=== PATIENT | male | born 1950 | race Caucasian/White ===

== ENCOUNTER 2016-06-20 11:35 | Inpatient (IN) | payer OTHER ==
[2016-06-20 12:05] VITALS: BMI 27.3
--- NOTE | 2016-06-20 13:37 | HP ---
CIWA Score - CIWA Score Nausea/Vomitin-No Nausea/No Vomiting Muscle Tremors: 1-None Visible, but [place] Anxiety: 6 Agitation: 4-Moderately Restless Paroxysmal Sweats: 1-Minimal Palms Moist Orientation: 0-Oriented Tacttile Disturbances: 3-Moderate Itch/Numb/Burn Auditory Disturbances: 0-None Visual Disturbances: 0-None Headache: 0-None Present CIWA-Ar Total Score: 15 Admission ROS BHS - HPI Chief Complaint: DETOX TX FOR ALCOHOL DEPENDENCE Allergies/Adverse Reactions: Allergies Allergy/AdvReac Type Severity Reaction Status Date / Time No Known Allergies Allergy Verified 08/30/15 17:49 History of Present Illness: 66 Y/O MALE WITH A HX OF ALCOHOL DEPENDENCE SEEKING DETOX [place] Exam Limitations: No Limitations - Ebola screening Have you traveled outside of the country in the last 21 days: No Have you had contact with anyone from an Ebola affected area: No Have you been sick,other than usual withdrawal symptoms: No - Review of Systems Constitutional: Chills, Night Sweats, Changes in sleep EENT: reports: Blurred Vision (WEARS GLASSES), Nose Congestion Respiratory: reports: Shortness of Breath (HX COPD), Wheezing Cardiac: reports: No Symptoms Reported GI: reports: Nausea, Vomiting : reports: Incontinence, Other (PROSTATE CANCER..GOING INTO RADIATION TX AFTER DETOX HERE.) Musculoskeletal: reports: Back Pain (STENOSIS/BULGING DISCS), Joint Pain, Muscle Pain, Other (FX RIGHT FOOT..PINS ON HEEL.) Integumentary: reports: No Symptoms Reported Neuro: reports: Unsteady Gait (USES CANE.) Endocrine: reports: No Symptoms Reported Hematology: reports: No Symptoms Reported Psychiatric: reports: Orientated x3, Agitated, Anxious, Depressed Other Systems: Reviewed and Negative Patient History - Patient Medical History Hx Anemia: No Hx Asthma: No Hx Chronic Obstructive Pulmonary Disease (COPD): Yes (on albuterol inhaler) Hx Cancer: Yes (PROSTATE CANCER) Hx Cardiac Disorders: No (Pt has a pacemaker 2012) Hx Hypertension: Yes (ON MEDS) Hx Hypercholesterolemia: No Hx Pacemaker: Yes (in 2012) HX Cerebrovascular Accident: No Hx Seizures: No Hx Diabetes: No Hx Gastrointestinal Disorders: No Hx Genitourinary Disorders: Yes (INCONTINENT/PROSTATE CANCER/BPH) Hx Sexually Transmitted Disorders: No Hx Renal Disease (ESRD): Yes (KIDNEY STONES SUMMER 2015) Hx Thyroid Disease: No Hx Human Immunodeficiency Virus (HIV): No (NEGATIVE HX) Hx Hepatitis C: No Hx Depression: Yes (ON MEDS) Hx Suicide Attempt: No (DENIES) Hx Bipolar Disorder: No Hx Schizophrenia: No - Patient Surgical History Past Surgical History: Yes Hx Neurologic Surgery: No Hx Cataract Extraction: No Hx Cardiac Surgery: Yes (pacemaker in 2012) Hx Lung Surgery: No Hx Breast Surgery: No Hx Breast Biopsy: No Hx Abdominal Surgery: No Hx Appendectomy: No Hx Cholecystectomy: No Hx Genitourinary Surgery: No Hx Section: No Hx Orthopedic Surgery: Yes (rt. foot) Anesthesia Reaction: No - PPD History Previous Implant?: Yes Documented Results: Negative w/proof Implanted On Prior [facility] Admission?: Yes Date: 09/01/15 PPD to be Administered?: No - Reproductive History Patient is a Female of Child Bearing Age (11 -55 yrs old): No (MALE) - Smoking Cessation Smoking history: Current every day smoker Have you smoked in the past 12 months: Yes Aproximately how many cigarettes per day: 20 Hx Chewing Tobacco Use: No Initiated information on smoking cessation: Yes 'Breaking Loose' booklet given: 06/20/16 - Substance & Tx. History Hx Alcohol Use: Yes (VODKA) Substance Use Type: Alcohol Hx Substance Use Treatment: Yes - Substances Abused Alcohol Route: Oral Frequency: Daily Amount used: 3/4 OF A QUART Age of first use: 16 Date of Last Use: 06/20/16 Family Disease History - Family Disease History Family Disease History: Other: Brother (alcohol,), Sister (alcohol, ) Admission Physical Exam S - Vital Signs Vital Signs: Vital Signs - 24 hr 06/20/16 12:03 Temperature 96.4 F L Pulse Rate 96 H Respiratory 20 Rate Blood Pressure 144/85 - Physical General Appearance: Yes: Moderate Distress, Alcohol on Breath, Intoxicated, Irritable, Anxious HEENTM: Yes: EOMI, Normocephalic, ALBA Respiratory: Yes: Chest Non-Tender, Lungs Clear, Normal Breath Sounds, No Respiratory Distress Neck: Yes: Supple, Trachea in good position Breast: Yes: Breast Exam Deferred Cardiology: Yes: Regular Rhythm, Regular Rate, S1, S2 Abdominal: Yes: Normal Bowel Sounds, Non Tender, Soft Genitourinary: Yes: Other (N/C) Back: Yes: Within Normal Limits Musculoskeletal: Yes: full range of Motion, Gait Steady (USES CANE) Extremities: Yes: Normal Range of Motion, Non-Tender Neurological: Yes: leg man II-XII NML intact, Fully Oriented, Alert Integumentary: Yes: Dry, Warm Lymphatic: Yes: Within Normal Limits - Diagnostic (1) Alcohol dependence with uncomplicated withdrawal Current Visit: Yes Status: Acute (2) COPD (chronic obstructive pulmonary disease) Current Visit: Yes Status: Chronic Qualifiers: COPD type: unspecified COPD Qualified Code(s): J44.9 - Chronic obstructive pulmonary disease, unspecified (3) Essential hypertension Current Visit: Yes Status: Chronic (4) History of pacemaker Current Visit: Yes Status: Chronic (5) Nicotine dependence Current Visit: Yes Status: Chronic Qualifiers: Nicotine product type: cigarettes Substance use status: uncomplicated Qualified Code(s): F17.210 - Nicotine dependence, cigarettes, uncomplicated (6) BPH (benign prostatic hyperplasia) Current Visit: Yes Status: Chronic Qualifiers: Prostatic enlargement morphology: unspecified morphology Lower urinary tract symptom presence: symptoms absent Qualified Code(s): N40.0 - Enlarged prostate without lower urinary tract symptoms (7) GERD (gastroesophageal reflux disease) Current Visit: Yes Status: Chronic Qualifiers: Esophagitis presence: without esophagitis Qualified Code(s): K21.9 - Gastro-esophageal reflux disease without esophagitis (8) History of prostate cancer Current Visit: Yes Status: Suspected Comment: PT STATES CURRENTLY GOING THROUGH PROCESS FOR SX THEN RADIATION TX AFTER DETOX Cleared for Admission BHS - Detox or Rehab [facility] Level of Care: Medically Managed Detox Regimen/Protocol: Librium [facility] Breath Alcohol Content Breath Alcohol Content: 0.093 Urine Drug Screen - Results Drug Screen Negative: No Urine Drug Screen Results: TCA-Tricyclic Antidepress
[2016-06-20] MEDS ORDERED: MAG HYDROX/AL HYDROX/SIMETH 30 ML UNIT-DOSE CUP PO PRN (13:50)
[2016-06-20] MEDS ORDERED: MAGNESIUM HYDROX 2400MG/30ML ORAL SUSPENSION 30 ML CUP PO PRN (13:50)
[2016-06-20] MEDS ORDERED: P-EPHED 60MG/TRIPROLIDI 2.5MG TABLET PO PRN (13:50)
[2016-06-20] MEDS ORDERED: guaiFENesin/D-METHORPHAN HB 10 ML UNIT-DOSE CUPS PO PRN (13:50)
[2016-06-20] MEDS ORDERED: LOPERAMIDE HCL 2 MG CAPSULE PO PRN (13:50)
[2016-06-20] MEDS ORDERED: MAGNESIUM CITRATE 300 ML BOTTLE PO PRN (13:50)
[2016-06-20] MEDS ORDERED: IBUPROFEN 400 MG TABLET (FP) PO PRN (13:50)
[2016-06-20] MEDS ORDERED: hydrOXYzine PAMOATE 25 MG CAPSULE (FP) PO PRN (13:50)
[2016-06-20] MEDS ORDERED: MENTHOL/PHENOL 1 EACH UD MM PRN (13:50)
[2016-06-20] MEDS ORDERED: chlordiazePOXIDE HCL 25 MG CAPSULE PO PRN (13:50)
[2016-06-20] MEDS ORDERED: ACETAMINOPHEN 325 MG TABLET (FP) PO PRN (13:50)
[2016-06-20] MEDS ORDERED: NICOTINE POLACRILEX 4 MG GUM BUC PRN (13:50)
[2016-06-20] MEDS ORDERED: chlordiazePOXIDE HCL 25 MG CAPSULE PO ONE (14:42)
[2016-06-20] MEDS ORDERED: ALBUTEROL SO4 6.7 GM HFA INHALER IH PRN (14:50)
[2016-06-20] MEDS: ASPIRIN 81 MG CHEWABLE TABLETS PO SCH (15:50)
[2016-06-20] MEDS: NICOTINE 21 MG/24 HOURS TOPICAL PATCH TD SCH (15:51)
[2016-06-20] MEDS: HYDROCHLOROTHIAZIDE 25 MG TABLET (FP) PO SCH (15:51)
[2016-06-20] MEDS: TAMSULOSIN HCL 0.4 MG CAP.ER.24H (FP) PO SCH (15:51)
[2016-06-20] MEDS: amLODIPine BESYLATE 5 MG TABLET (FP) PO SCH ×2 (15:52→16:53)
[2016-06-20] MEDS: chlordiazePOXIDE HCL 25 MG CAPSULE PO SCH ×2 (17:42→22:23)
[2016-06-20 21:03] LABS: URINE APPEARANCE CLEAR; URINE BILIRUBIN NEGATIVE (NEGATIVE); URINE BLOOD NEGATIVE (NEGATIVE); URINE COLOR YELLOW; URINE GLUCOSE (UA) NEGATIVE (NEGATIVE); URINE KETONE NEGATIVE (NEGATIVE); URINE LEUK ESTERASE NEGATIVE (NEGATIVE); URINE NITRITE NEGATIVE (NEGATIVE); URINE PROTEIN NEGATIVE (NEGATIVE); URINE UROBILINOGEN NEGATIVE E.U./dl (0.2-1.0)
[2016-06-20] MEDS: THIAMINE HCL 100 MG TABLET (FP) PO SCH (22:24)
[2016-06-21] MEDS: chlordiazePOXIDE HCL 25 MG CAPSULE PO SCH ×4 (05:38→22:17)
--- NOTE | 2016-06-21 09:34 | EKG ---
Test Reason : Blood Pressure : / mmHG Vent. Rate : 090 BPM Atrial Rate : 090 BPM P-R Int : 164 ms QRS Dur : 144 ms QT Int : 400 ms P-R-T Axes : 042 -46 034 degrees QTc Int : 489 ms NORMAL SINUS RHYTHM LEFT AXIS DEVIATION RIGHT BUNDLE BRANCH BLOCK CANNOT RULE OUT INFERIOR INFARCT , AGE UNDETERMINED ABNORMAL ECG NO PREVIOUS ECGS AVAILABLE Confirmed by BERTIN BANDA MD ([id number]) on 06/21/2016 9:34:31 AM Referred By: Garland Ortiz Confirmed By:BERTIN BANDA MD
[2016-06-21] MEDS: amLODIPine BESYLATE 5 MG TABLET (FP) PO SCH (10:21)
[2016-06-21] MEDS: ASPIRIN 81 MG CHEWABLE TABLETS PO SCH (10:21)
[2016-06-21] MEDS: PRENATAL VITAMINS W/ FOLIC ACID TABLET (FP) PO SCH (10:22)
[2016-06-21] MEDS: HYDROCHLOROTHIAZIDE 25 MG TABLET (FP) PO SCH (10:22)
[2016-06-21] MEDS: NICOTINE 21 MG/24 HOURS TOPICAL PATCH TD SCH (10:24)
[2016-06-21] MEDS: TAMSULOSIN HCL 0.4 MG CAP.ER.24H (FP) PO SCH (10:24)
[2016-06-21 10:25] LABS: MCH 33.3 pg (25.7-33.7); MCHC 33.7 g/dl (32.0-35.9); MEAN PLT VOLUME 9.6 fl (7.5-11.1); PLATELET COUNT 253 K/MM3 (134-434); RDW 14.1 % (11.9-15.9); WHITE BLOOD COUNT 6.6 K/mm3 (4.0-10.0)
--- NOTE | 2016-06-21 11:12 | PN ---
S CIWA - CIWA Score Nausea/Vomitin Muscle Tremors: 4-Moderate,w/Arms Extend Anxiety: 4-Mod. Anxious/Guarded Agitation: 4-Moderately Restless Paroxysmal Sweats: 3 Orientation: 0-Oriented Tacttile Disturbances: 1-Very Mild Itch/Numbness Auditory Disturbances: 0-None Visual Disturbances: 0-None Headache: 1-Very Mild CIWA-Ar Total Score: 20 BHS Progress Note (SOAP) Subjective: nausea, sweats, interrupted sleep, anxiety, tremors Objective: 06/21/16 11:11 Vital Signs - 24 hr 06/20/16 06/20/16 06/20/16 12:03 15:55 17:39 Temperature 96.4 F L 98.1 F 97.5 F L Pulse Rate 96 H 95 H 97 H Respiratory 20 20 20 Rate Blood Pressure 144/85 96/68 151/77 06/20/16 06/20/16 06/21/16 21:34 23:34 03:28 Temperature 95.9 F L Pulse Rate 107 H 92 H Respiratory 20 18 16 Rate Blood Pressure 155/107 158/78 06/21/16 06/21/16 06:00 10:17 Temperature 97.2 F L 97.7 F Pulse Rate 86 103 H Respiratory 20 18 Rate Blood Pressure 111/63 147/57 Laboratory Tests 06/20/16 06/21/16 19:00 06:10 WBC 6.6 RBC 4.78 Hgb 15.9 D Hct 47.4 MCV 99.0 H MCHC 33.7 RDW 14.1 Plt Count 253 MPV 9.6 Urine Color Yellow Urine Appearance Clear Urine pH 5.0 D Ur Specific [place] 1.025 Urine Protein Negative Urine Glucose (UA) Negative Urine Ketones Negative Urine Blood Negative Urine Nitrite Negative Urine Bilirubin Negative Urine Urobilinogen Negative Ur Leukocyte Esterase Negative labs still pending Assessment: 06/21/16 11:11 withdrawal sx Plan: cont detox
[2016-06-21 11:54] LABS: ALBUMIN 3.7 g/dl (3.4-5.0); ALK PHOS 71 U/L (45-117); ANION GAP 12 (8-16); BILIRUBIN,TOTAL 0.3 mg/dL (0.2-1.0); CALCIUM 8.7 mg/dL (8.5-10.1); CO2 22 mmol/L (21-32); CREATININE 0.6 mg/dL (0.7-1.3); GLUCOSE,RANDOM 108 mg/dL (74-106); SGOT/AST 31 U/L (15-37); SGPT/ALT 43 U/L (12-78); TOT PROT 7.6 g/dl (6.4-8.2)
--- NOTE | 2016-06-21 12:58 | CONSULT ---
[facility] Psychiatric Consult - Data Date of interview: 06/21/16 Admission source: [facility] Identifying data: Readmission to [facility] for this 66 y/o male seeking detox treatment on for alcohol dependence.Patient is ,a father of one,domiciled,unemployed and supported on SSI benefits. Substance Abuse History: - Smoking Cessation. Smoking history: Current every day smoker. Have you smoked in the past 12 months: Yes. Aproximately how many cigarettes per day: 20. Hx Chewing Tobacco Use: No. Initiated information on smoking cessation: Yes. 'Breaking Loose' booklet given: 06/20/16. - Substance & Tx. History. Hx Alcohol Use: Yes (VODKA). Substance Use Type: Alcohol. Hx Substance Use Treatment: Yes. - Substances Abused. Alcohol. Route: Oral. Frequency: Daily. Amount used: 3/4 OF A QUART. Age of first use: 16. Date of Last Use: 06/20/16. Discussed with the patient in this interview.Mr Gomez confirmed this pattern of substance use. Medical History: Significant for a history of hypertension,GERD,COPD,pacemaker implantation (2013),herniated discs,low back pain,Ca of prostate (on radiation therapy) and coronary artery disease.Noted additional report of kidney stones and a history of orthosurgery (fracture of right foot). Psychiatric History: One reported psychiatric hospitalization at [facility] (2011).Diagnosed with MDD and Panic Disorder.Mr Gomez is followed at the [facility] clinic in [facility].Maintenance medications consist of effexor Xr 150 mg /day + gabapentin 300 mg po tid.No history of suicide attempts. Physical/Sexual Abuse/Trauma History: Patient denies. Additional Comment: Urine Drug Screen Results: TCA-Tricyclic Antidepressant.Noted. Mental Status Exam - Mental Status Exam Alert and Oriented to: Time, Place, Person Cognitive Function: Good Patient Appearance: Well Groomed Mood: Hopeful, Euthymic Affect: Appropriate, Normal Range Patient Behavior: Fatigued, Talkative (friendly on approach), Appropriate, Cooperative Speech Pattern: Clear, Appropriate Voice Loudness: Normal Thought Process: Intact, Goal Oriented Thought Disorder: Not Present Hallucinations: Denies Suicidal Ideation: Denies Homicidal Ideation: Denies Insight/Judgement: Fair Sleep: Poorly Appetite: Good Muscle strength/Tone: Normal Gait/Station: Other (walks with a cane) Psychiatric Findings - Problem List ([place] 1, 2,3) (1) Alcohol dependence with uncomplicated withdrawal Current Visit: Yes Status: Acute (2) Nicotine dependence Current Visit: Yes Status: Acute Qualifiers: Nicotine product type: cigarettes Substance use status: uncomplicated Qualified Code(s): F17.210 - Nicotine dependence, cigarettes, uncomplicated (3) MDD (major depressive disorder) Current Visit: Yes Status: Chronic Qualifiers: Major depression recurrence: recurrent Active/Remission status: in remission of unspecified degree Qualified Code(s): F33.40 - Major depressive disorder, recurrent, in remission, unspecified (4) Anxiety disorder Current Visit: Yes Status: Chronic (5) BPH (benign prostatic hyperplasia) Current Visit: Yes Status: Chronic Qualifiers: Prostatic enlargement morphology: unspecified morphology Lower urinary tract symptom presence: symptoms absent Qualified Code(s): N40.0 - Enlarged prostate without lower urinary tract symptoms (6) COPD (chronic obstructive pulmonary disease) Current Visit: Yes Status: Chronic Qualifiers: COPD type: unspecified COPD Qualified Code(s): J44.9 - Chronic obstructive pulmonary disease, unspecified (7) Essential hypertension Current Visit: Yes Status: Chronic (8) GERD (gastroesophageal reflux disease) Current Visit: Yes Status: Chronic Qualifiers: Esophagitis presence: without esophagitis Qualified Code(s): K21.9 - Gastro-esophageal reflux disease without esophagitis (9) History of pacemaker Current Visit: Yes Status: Chronic (10) History of prostate cancer Current Visit: Yes Status: Suspected Comment: PT STATES CURRENTLY GOING THROUGH PROCESS FOR SX THEN RADIATION [place] AFTER DETOX - Initial Treatment Plan Initial Treatment Plan: Psychoeducation.Detoxification.Medications :effexor Xr 150 mg po daily +gabapentin 300 mg po tid (verified via pharmacy claims on @ [facility] in [facility]).Side effects/benefits discussed with the patient.He agrees with careplan.Observation.Fall precautions.
[2016-06-21] MEDS: GABAPENTIN 300 MG CAPSULE (FP) PO SCH ×2 (14:12→22:17)
[2016-06-21] MEDS: THIAMINE HCL 100 MG TABLET (FP) PO SCH (22:17)
[2016-06-22] MEDS: GABAPENTIN 300 MG CAPSULE (FP) PO SCH ×3 (05:37→22:10)
[2016-06-22] MEDS: chlordiazePOXIDE HCL 25 MG CAPSULE PO SCH ×2 (05:37→10:39)
[2016-06-22] MEDS: VENLAFAXINE HCL 150 MG E.R. CAPSULE PO SCH (10:38)
[2016-06-22] MEDS: amLODIPine BESYLATE 5 MG TABLET (FP) PO SCH (10:38)
[2016-06-22] MEDS: PRENATAL VITAMINS W/ FOLIC ACID TABLET (FP) PO SCH (10:38)
[2016-06-22] MEDS: TAMSULOSIN HCL 0.4 MG CAP.ER.24H (FP) PO SCH (10:38)
[2016-06-22] MEDS: ASPIRIN 81 MG CHEWABLE TABLETS PO SCH (10:38)
[2016-06-22] MEDS: HYDROCHLOROTHIAZIDE 25 MG TABLET (FP) PO SCH (10:38)
[2016-06-22] MEDS: NICOTINE 21 MG/24 HOURS TOPICAL PATCH TD SCH (10:39)
--- NOTE | 2016-06-22 11:49 | PN ---
[facility] CIWA - CIWA Score Nausea/Vomitin-No Nausea/No Vomiting Muscle Tremors: 4-Moderate,w/Arms Extend Anxiety: 4-Mod. Anxious/Guarded Agitation: 3 Paroxysmal Sweats: 3 Orientation: 0-Oriented Tacttile Disturbances: 1-Very Mild Itch/Numbness Auditory Disturbances: 0-None Visual Disturbances: 0-None Headache: 0-None Present CIWA-Ar Total Score: 15 BHS Progress Note (SOAP) Subjective: ANXIETY,TREMORS,SWEATING,INTERRUPTED SLEEP,RESTLESS Objective: 06/22/16 11:47 Laboratory Last Values WBC 6.6 K/mm3 (4.0-10.0) 06/21/16 06:10 RBC 4.78 M/mm3 (4.00-5.60) 06/21/16 06:10 Hgb 15.9 GM/dL (11.7-16.9) D 06/21/16 06:10 Hct 47.4 % (35.4-49) 06/21/16 06:10 MCV 99.0 fl (80-96) H 06/21/16 06:10 MCHC 33.7 g/dl (32.0-35.9) 06/21/16 06:10 RDW 14.1 % (11.9-15.9) 06/21/16 06:10 Plt Count 253 K/MM3 (134-434) 06/21/16 06:10 MPV 9.6 fl (7.5-11.1) 06/21/16 06:10 Sodium 145 mmol/L (136-145) 06/21/16 06:10 Potassium 3.9 mmol/L (3.5-5.1) 06/21/16 06:10 Chloride 111 mmol/L (98-107) H 06/21/16 06:10 Carbon Dioxide 22 mmol/L (21-32) D 06/21/16 06:10 Anion Gap 12 (8-16) 06/21/16 06:10 BUN 12 mg/dL (7-18) 06/21/16 06:10 Creatinine 0.6 mg/dL (0.7-1.3) L 06/21/16 06:10 Creat Clearance w eGFR > 60 (>60) 06/21/16 06:10 Random Glucose 108 mg/dL (74-106) H 06/21/16 06:10 Calcium 8.7 mg/dL (8.5-10.1) 06/21/16 06:10 Total Bilirubin 0.3 mg/dL (0.2-1.0) D 06/21/16 06:10 AST 31 U/L (15-37) D 06/21/16 06:10 ALT 43 U/L (12-78) D 06/21/16 06:10 Alkaline Phosphatase 71 U/L (45-117) 06/21/16 06:10 Total Protein 7.6 g/dl (6.4-8.2) 06/21/16 06:10 Albumin 3.7 g/dl (3.4-5.0) 06/21/16 06:10 Urine Color Yellow 06/20/16 19:00 Urine Appearance Clear 06/20/16 19:00 Urine pH 5.0 (5.0-8.0) D 06/20/16 19:00 Ur Specific [place] 1.025 (1.001-1.035) 06/20/16 19:00 Urine Protein Negative (NEGATIVE) 06/20/16 19:00 Urine Glucose (UA) Negative (NEGATIVE) 06/20/16 19:00 Urine Ketones Negative (NEGATIVE) 06/20/16 19:00 Urine Blood Negative (NEGATIVE) 06/20/16 19:00 Urine Nitrite Negative (NEGATIVE) 06/20/16 19:00 Urine Bilirubin Negative (NEGATIVE) 06/20/16 19:00 Urine Urobilinogen Negative E.U./dl (0.2-1.0) 06/20/16 19:00 Ur Leukocyte Esterase Negative (NEGATIVE) 06/20/16 19:00 RPR Titer Nonreactive (NONREACTIVE) 06/21/16 06:10 LABS NOTED Vital Signs - 8 hr 06/22/16 06/22/16 06:00 10:00 Temperature 96.3 F L 98.2 F Pulse Rate 76 117 H Respiratory 18 18 Rate Blood Pressure 125/74 132/72 Assessment: 06/22/16 11:48 WITHDRAWAL SX. Plan: CONTINUE DETOX
[2016-06-22] MEDS: chlordiazePOXIDE 5 MG CAPSULE PO SCH ×2 (17:06→22:10)
[2016-06-22] MEDS: THIAMINE HCL 100 MG TABLET (FP) PO SCH (22:10)
[2016-06-22] MEDS: diphenhydrAMINE HCL 50 MG CAPSULE PO PRN (22:11)
[2016-06-23] MEDS: GABAPENTIN 300 MG CAPSULE (FP) PO SCH ×3 (05:03→22:08)
[2016-06-23] MEDS: chlordiazePOXIDE 5 MG CAPSULE PO SCH ×2 (05:03→10:19)
--- NOTE | 2016-06-23 09:59 | PN ---
BHS Progress Note (SOAP) Subjective: irritable sweats Objective: 06/23/16 09:58 Vital Signs Temperature 97.6 F 06/23/16 05:14 Pulse Rate 86 06/23/16 05:14 Respiratory Rate 18 06/23/16 05:14 Blood Pressure 138/75 06/23/16 05:14 O2 Sat by Pulse Oximetry (%) awake/alert ambulating no acute distress Assessment: 06/23/16 09:58 withdrawal sx Plan: continue detox increase fluids d/c in am
[2016-06-23] MEDS: ASPIRIN 81 MG CHEWABLE TABLETS PO SCH (10:18)
[2016-06-23] MEDS: TAMSULOSIN HCL 0.4 MG CAP.ER.24H (FP) PO SCH (10:18)
[2016-06-23] MEDS: HYDROCHLOROTHIAZIDE 25 MG TABLET (FP) PO SCH (10:18)
[2016-06-23] MEDS: PRENATAL VITAMINS W/ FOLIC ACID TABLET (FP) PO SCH (10:18)
[2016-06-23] MEDS: VENLAFAXINE HCL 150 MG E.R. CAPSULE PO SCH (10:18)
[2016-06-23] MEDS: amLODIPine BESYLATE 5 MG TABLET (FP) PO SCH (10:18)
[2016-06-23] MEDS: NICOTINE 21 MG/24 HOURS TOPICAL PATCH TD SCH (10:19)
[2016-06-23] MEDS: chlordiazePOXIDE HCL 10 MG CAPSULE PO SCH ×2 (17:55→22:08)
[2016-06-23] MEDS: THIAMINE HCL 100 MG TABLET (FP) PO SCH (22:08)
[2016-06-23] MEDS: diphenhydrAMINE HCL 50 MG CAPSULE PO PRN (22:10)
[2016-06-24] MEDS: chlordiazePOXIDE HCL 10 MG CAPSULE PO SCH (05:22)
[2016-06-24] MEDS: GABAPENTIN 300 MG CAPSULE (FP) PO SCH (05:23)
--- NOTE | 2016-06-24 08:36 | DS ---
[facility] Detox Discharge Summary Admission Date: 06/20/16 Discharge Date: 06/24/16 - History Present History: Alcohol Dependence - Physical Exam Results Vital Signs: Vital Signs Temperature 96.8 F L 06/24/16 06:16 Pulse Rate 77 06/24/16 06:16 Respiratory Rate 18 06/24/16 06:16 Blood Pressure 118/61 06/24/16 06:16 O2 Sat by Pulse Oximetry (%) - Treatment Hospital Course: Detox Protocol Followed, Detoxed Safely, Responded well, Discharged Condition Good, Rehab Referral Accepted - Medication Discharge Medications: Ambulatory Orders Aspirin [ASA -] 81 mg PO DAILY 08/30/15 Venlafaxine HCl [Effexor -] 150 mg PO DAILY 08/30/15 Hydrochlorothiazide [Hctz -] 25 mg PO DAILY #30 tablet 09/03/15 Tamsulosin HCl [Flomax -] 0.4 mg PO DAILY #30 cap.er.24h 09/03/15 Albuterol Sulfate Inhaler - [Ventolin Hfa Inhaler -] 2 inh PO Q4H PRN 06/20/16 Amlodipine Besylate [Norvasc -] 5 mg PO DAILY 06/20/16 Cyclobenzaprine HCl [Flexeril -] 10 mg PO TID 06/20/16 Gabapentin [Neurontin -] 300 mg PO Q8H 06/20/16 Venlafaxine HCl ER [Effexor Xr -] 150 mg PO DAILY #30 cap.er.24h 06/21/16 - Diagnosis (1) Alcohol dependence with uncomplicated withdrawal Current Visit: Yes Status: Chronic (2) Nicotine dependence Current Visit: Yes Status: Chronic Qualifiers: Nicotine product type: cigarettes Substance use status: uncomplicated Qualified Code(s): F17.210 - Nicotine dependence, cigarettes, uncomplicated (3) Anxiety disorder Current Visit: Yes Status: Chronic (4) BPH (benign prostatic hyperplasia) Current Visit: Yes Status: Chronic Qualifiers: Prostatic enlargement morphology: unspecified morphology Lower urinary tract symptom presence: symptoms absent Qualified Code(s): N40.0 - Enlarged prostate without lower urinary tract symptoms (5) COPD (chronic obstructive pulmonary disease) Current Visit: Yes Status: Chronic Qualifiers: COPD type: unspecified COPD Qualified Code(s): J44.9 - Chronic obstructive pulmonary disease, unspecified (6) Essential hypertension Current Visit: Yes Status: Chronic (7) GERD (gastroesophageal reflux disease) Current Visit: Yes Status: Chronic Qualifiers: Esophagitis presence: without esophagitis Qualified Code(s): K21.9 - Gastro-esophageal reflux disease without esophagitis (8) History of pacemaker Current Visit: Yes Status: Chronic (9) MDD (major depressive disorder) Current Visit: Yes Status: Chronic Qualifiers: Major depression recurrence: recurrent Active/Remission status: in remission of unspecified degree Qualified Code(s): F33.40 - Major depressive disorder, recurrent, in remission, unspecified (10) History of prostate cancer Current Visit: Yes Status: Suspected (11) Depression Current Visit: No Status: Acute (12) Syncope Current Visit: No Status: Acute - AMA Did Patient Leave Against Medical Advice: No
[2016-06-24 09:31] VITALS: BP 112/72; PULSE 92; TEMP 97.7
[2016-06-24] MEDS: VENLAFAXINE HCL 150 MG E.R. CAPSULE PO SCH (09:47)
[2016-06-24] MEDS: TAMSULOSIN HCL 0.4 MG CAP.ER.24H (FP) PO SCH (09:47)
[2016-06-24] MEDS: amLODIPine BESYLATE 5 MG TABLET (FP) PO SCH (09:47)
[2016-06-24] MEDS: ASPIRIN 81 MG CHEWABLE TABLETS PO SCH (09:47)
[2016-06-24] MEDS: HYDROCHLOROTHIAZIDE 25 MG TABLET (FP) PO SCH (09:47)
[2016-06-24] MEDS: PRENATAL VITAMINS W/ FOLIC ACID TABLET (FP) PO SCH (09:47)
[2016-06-24] MEDS: NICOTINE 21 MG/24 HOURS TOPICAL PATCH TD SCH (09:48)
== END 2016-06-24 10:06 | disposition home or self-care (01) | DRG 775 ==
LOC: YASAS 11:35 → Y6N 14:33
PROVIDERS: ADMIT Internal Medicine; ATTEND Internal Medicine
PROC: HZ2ZZZZ Detoxification Services for Substance Abuse Treatment (ICD-10-PCS; principal; 2016-06-24)
DX: F10.230 Alcohol dependence with withdrawal, uncomplicated (principal); F17.210 Nicotine dependence, cigarettes, uncomplicated; F33.40 Major depressive disorder, recurrent, in remission, unspecified; F41.9 Anxiety disorder, unspecified; I10 Essential (primary) hypertension; J44.9 Chronic obstructive pulmonary disease, unspecified; K21.9 Gastro-esophageal reflux disease without esophagitis; N40.0 Benign prostatic hyperplasia without lower urinary tract symptoms; Z85.46 Personal history of malignant neoplasm of prostate; Z95.0 Presence of cardiac pacemaker; R55 Syncope and collapse
CPT/HCPCS: 36415; 80053; 81003; 85027; 86593; 93005; 93010

== ENCOUNTER 2016-10-03 12:48 | Inpatient (IN) | payer OTHER ==
[2016-10-03 17:46] VITALS: BMI 27.1
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
[2016-10-03] MEDS ORDERED: MAGNESIUM HYDROX 2400MG/30ML ORAL SUSPENSION 30 ML CUP PO PRN (18:25)
[2016-10-03] MEDS ORDERED: IBUPROFEN 400 MG TABLET (FP) PO PRN (18:25)
[2016-10-03] MEDS ORDERED: P-EPHED 60MG/TRIPROLIDI 2.5MG TABLET PO PRN (18:25)
[2016-10-03] MEDS ORDERED: MAGNESIUM CITRATE 300 ML BOTTLE PO PRN (18:25)
[2016-10-03] MEDS ORDERED: LOPERAMIDE HCL 2 MG CAPSULE PO PRN (18:25)
[2016-10-03] MEDS ORDERED: NICOTINE POLACRILEX 4 MG GUM BUC PRN (18:25)
[2016-10-03] MEDS ORDERED: guaiFENesin/D-METHORPHAN HB 10 ML UNIT-DOSE CUPS PO PRN (18:25)
[2016-10-03] MEDS ORDERED: chlordiazePOXIDE HCL 25 MG CAPSULE PO PRN (18:25)
[2016-10-03] MEDS ORDERED: MENTHOL/PHENOL 1 EACH UD MM PRN (18:25)
[2016-10-03] MEDS ORDERED: hydrOXYzine PAMOATE 50 MG CAPSULE (FP) PO PRN (18:25)
[2016-10-03] MEDS ORDERED: ACETAMINOPHEN 325 MG TABLET (FP) PO PRN (18:25)
[2016-10-03] MEDS ORDERED: MAG HYDROX/AL HYDROX/SIMETH 30 ML UNIT-DOSE CUP PO PRN (18:25)
[2016-10-03] MEDS ORDERED: ALBUTEROL SO4 6.7 GM HFA INHALER IH PRN (18:27)
[2016-10-03] MEDS ORDERED: CYCLOBENZAPRINE HCL 10 MG TABLET (FP) PO PRN (18:28)
[2016-10-03] MEDS ORDERED: ALBUTEROL SO4 2.5/IPRATROPIUM 0.5 INH SOL 3 ML VIAL.NEB. NEB PRN (18:28)
[2016-10-03] MEDS ORDERED: chlordiazePOXIDE HCL 25 MG CAPSULE PO ONE (18:45)
[2016-10-03] MEDS: GABAPENTIN 300 MG CAPSULE (FP) PO SCH ×2 (19:33→22:55)
[2016-10-03] MEDS ORDERED: diphenhydrAMINE HCL 50 MG CAPSULE PO PRN (22:00)
[2016-10-03] MEDS: TAMSULOSIN HCL 0.4 MG CAP.ER.24H (FP) PO SCH (22:54)
[2016-10-03] MEDS: THIAMINE HCL 100 MG TABLET (FP) PO SCH (22:54)
[2016-10-03] MEDS: chlordiazePOXIDE HCL 25 MG CAPSULE PO SCH (22:55)
[2016-10-03 23:11] LABS: URINE APPEARANCE CLEAR; URINE BILIRUBIN NEGATIVE (NEGATIVE); URINE BLOOD NEGATIVE (NEGATIVE); URINE COLOR YELLOW; URINE GLUCOSE (UA) NEGATIVE (NEGATIVE); URINE KETONE 1+ (NEGATIVE); URINE LEUK ESTERASE NEGATIVE (NEGATIVE); URINE NITRITE NEGATIVE (NEGATIVE); URINE PROTEIN 1+ (NEGATIVE); URINE UROBILINOGEN NEGATIVE E.U./dl (0.2-1.0)
[2016-10-03 23:18] LABS: URINE MUCUS MANY; URINE RBC 4 /hpf (0-3); URINE WBC 1 /hpf (3-5)
[2016-10-04] MEDS: chlordiazePOXIDE HCL 25 MG CAPSULE PO SCH ×4 (05:47→22:49)
[2016-10-04] MEDS: GABAPENTIN 300 MG CAPSULE (FP) PO SCH ×3 (05:47→22:49)
[2016-10-04 10:26] LABS: MCHC 33.3 g/dl (32.0-35.9); MEAN CELL VOLUME 102.3 fl (80-96); MEAN PLT VOLUME 10.1 fl (7.5-11.1); PLATELET COUNT 114 K/MM3 (134-434); RDW 15.3 % (11.9-15.9)
[2016-10-04 10:52] LABS: ALBUMIN 4.1 g/dl (3.4-5.0); ALK PHOS 59 U/L (45-117); ANION GAP 12 (8-16); BILIRUBIN,TOTAL 0.9 mg/dL (0.2-1.0); CO2 26 mmol/L (21-32); COCKROFT - GAULT 159.59; CREATININE 0.6 mg/dL (0.7-1.3); GLUCOSE,RANDOM 86 mg/dL (74-106); SGOT/AST 70 U/L (15-37); SGPT/ALT 66 U/L (12-78); TOT PROT 7.8 g/dl (6.4-8.2)
[2016-10-04] MEDS: NICOTINE 21 MG/24 HOURS TOPICAL PATCH TD SCH (11:00)
[2016-10-04] MEDS: HYDROCHLOROTHIAZIDE 25 MG TABLET (FP) PO SCH (11:00)
[2016-10-04] MEDS: PRENATAL VITAMINS W/ FOLIC ACID TABLET (FP) PO SCH (11:00)
[2016-10-04] MEDS: LOSARTAN POTASSIUM 50 MG TABLET (FP) PO SCH (11:00)
[2016-10-04] MEDS: ASPIRIN 81 MG CHEWABLE TABLETS PO SCH (11:00)
--- NOTE | 2016-10-04 15:42 | CONSULT ---
[facility] Psychiatric Consult - Data Date of interview: 10/04/16 Admission source: [facility] Identifying data: Another admission to [facility] for this 66 y/o male seeking detox treatment on for alcohol dependence.Patient is ,a father of one,domiciled,unemployed and supported on SSI benefits. Substance Abuse History: - Smoking Cessation. Smoking history: Current every day smoker. Have you smoked in the past 12 months: Yes. Aproximately how many cigarettes per day: 20. Cigars Per Day: 0. Hx Chewing Tobacco Use: No. Initiated information on smoking cessation: Yes. 'Breaking Loose' booklet given : 10/03/16. - Substance & Tx. History. Hx Alcohol Use: Yes. Hx Substance Use : No. Substance Use Type: Alcohol. Hx Substance Use Treatment: Yes. - Substances Abused. Alcohol. Route: Oral. Frequency: Daily. Amount used: 1 qt vodka. Age of first use: 14. Date of Last Use: 10/03/16. Confirmed by patient. Medical History: Hypertension,GERD,COPD,pacemaker implantation (2013),herniated discs,low back pain,radiculopathy,spinal stenosis and current treatment for Ca of prostate. Psychiatric History: Patient is a clear,articulate and consistent historian.No major changes in longitudinal history since previous encounter about two months ago : history of one psychiatric hospitalization ([facility] in 2011).Diagnosed with MDD and Panic Disorder.Mr Gomez is still followed at the [facility] clinic in [facility].Maintenance medications consist of effexor Xr 75 mg /day (reduced) + gabapentin 300 mg po tid.No history of suicide attempts. Physical/Sexual Abuse/Trauma History: Patient denies. Additional Comment: Drug Screen is negative. Mental Status Exam - Mental Status Exam Alert and Oriented to: Time, Place, Person Cognitive Function: Good Patient Appearance: Well Groomed Mood: Hopeful, Euthymic Affect: Appropriate, Normal Range Patient Behavior: Fatigued, Appropriate, Cooperative (friendly) Speech Pattern: Clear, Appropriate Voice Loudness: Normal Thought Process: Goal Oriented Thought Disorder: Not Present Hallucinations: Denies Suicidal Ideation: Denies Homicidal Ideation: Denies Insight/Judgement: Fair Sleep: Fair Appetite: Good Gait/Station: Other (ambulates with a cane) Psychiatric Findings - Problem List ([place] 1, 2,3) (1) Alcohol dependence with uncomplicated withdrawal Current Visit: Yes Status: Acute (2) Nicotine dependence Current Visit: Yes Status: Acute Qualifiers: Nicotine product type: cigarettes Substance use status: in withdrawal Qualified Code(s): F17.213 - Nicotine dependence, cigarettes, with withdrawal (3) MDD (major depressive disorder) Current Visit: Yes Status: Chronic Qualifiers: Major depression recurrence: recurrent Active/Remission status: in remission of unspecified degree Qualified Code(s): F33.40 - Major depressive disorder, recurrent, in remission, unspecified (4) Anxiety disorder Current Visit: Yes Status: Chronic (5) COPD (chronic obstructive pulmonary disease) Current Visit: Yes Status: Chronic Qualifiers: COPD type: unspecified COPD Qualified Code(s): J44.9 - Chronic obstructive pulmonary disease, unspecified (6) Essential hypertension Current Visit: Yes Status: Chronic (7) Hard of hearing Current Visit: Yes Status: Chronic Qualifiers: Hearing loss type: conductive Laterality: right Contralateral hearing status: unspecified Qualified Code(s): H90.11 - Conductive hearing loss, unilateral, right ear, with unrestricted hearing on the contralateral side (8) BPH (benign prostatic hyperplasia) Current Visit: Yes Status: Resolved Qualifiers: Prostatic enlargement morphology: unspecified morphology Lower urinary tract symptom presence: symptoms absent Qualified Code(s): N40.0 - Benign prostatic hyperplasia without lower urinary tract symptoms (9) History of prostate cancer Current Visit: Yes Status: Suspected Comment: PT STATES CURRENTLY GOING THROUGH PROCESS FOR SX THEN RADIATION TX AFTER DETOX (10) GERD (gastroesophageal reflux disease) Current Visit: Yes Status: Chronic Qualifiers: Esophagitis presence: without esophagitis Qualified Code(s): K21.9 - Gastro-esophageal reflux disease without esophagitis (11) History of pacemaker Current Visit: Yes Status: Chronic - Initial Treatment Plan Initial Treatment Plan: Psycoeducation.Detoxification.Medications are ordered ( see Psychiatric History for details).Side effecst/benefits of effexor and gabapentin are discussed with patient.He agrees with careplan.Patient declines to have scripts at discharge (supply available at home).Observation.
--- NOTE | 2016-10-04 16:40 | PN ---
[facility] CIWA - CIWA Score Nausea/Vomitin-Mild Nausea/No Vomiting Muscle Tremors: 4-Moderate,w/Arms Extend Anxiety: 3 Agitation: 2 Paroxysmal Sweats: 3 Orientation: 0-Oriented Tacttile Disturbances: 3-Moderate Itch/Numb/Burn Auditory Disturbances: 2-Mild Harshness/Frighten Visual Disturbances: 0-None Headache: 0-None Present CIWA-Ar Total Score: 18 BHS Progress Note (SOAP) Subjective: Constipation, Tremors, Sweating, Body Aches. Objective: PT. A & O X 3, OBSERVED AMBULATING ON UNIT WITH ASSISTANCE OF A CANE. PT. DENIES CHEST PAIN. 10/04/16 16:38 Vital Signs Temperature 97.6 F 10/04/16 13:26 Pulse Rate 70 10/04/16 13:26 Respiratory Rate 18 10/04/16 13:26 Blood Pressure 97/68 10/04/16 13:26 O2 Sat by Pulse Oximetry (%) Laboratory Last Values WBC 5.0 K/mm3 (4.0-10.0) 10/04/16 06:05 RBC 4.33 M/mm3 (4.00-5.60) 10/04/16 06:05 Hgb 14.8 GM/dL (11.7-16.9) 10/04/16 06:05 Hct 44.3 % (35.4-49) 10/04/16 06:05 MCV 102.3 fl (80-96) H 10/04/16 06:05 MCHC 33.3 g/dl (32.0-35.9) 10/04/16 06:05 RDW 15.3 % (11.9-15.9) 10/04/16 06:05 Plt Count 114 K/MM3 (134-434) L D 10/04/16 06:05 MPV 10.1 fl (7.5-11.1) 10/04/16 06:05 Sodium 142 mmol/L (136-145) 10/04/16 06:05 Potassium 3.8 mmol/L (3.5-5.1) 10/04/16 06:05 Chloride 104 mmol/L (98-107) 10/04/16 06:05 Carbon Dioxide 26 mmol/L (21-32) 10/04/16 06:05 Anion Gap 12 (8-16) 10/04/16 06:05 BUN 7 mg/dL (7-18) D 10/04/16 06:05 Creatinine 0.6 mg/dL (0.7-1.3) L 10/04/16 06:05 Creat Clearance w eGFR > 60 (>60) 10/04/16 06:05 Random Glucose 86 mg/dL (74-106) D 10/04/16 06:05 Calcium 9.0 mg/dL (8.5-10.1) 10/04/16 06:05 Total Bilirubin 0.9 mg/dL (0.2-1.0) D 10/04/16 06:05 AST 70 U/L (15-37) H D 10/04/16 06:05 ALT 66 U/L (12-78) D 10/04/16 06:05 Alkaline Phosphatase 59 U/L (45-117) 10/04/16 06:05 Total Protein 7.8 g/dl (6.4-8.2) 10/04/16 06:05 Albumin 4.1 g/dl (3.4-5.0) 10/04/16 06:05 Urine Color Yellow 10/03/16 20:33 Urine Appearance Clear 10/03/16 20:33 Urine pH 6.0 (5.0-8.0) 10/03/16 20:33 Urine Protein 1+ (NEGATIVE) H 10/03/16 20:33 Urine Glucose (UA) Negative (NEGATIVE) 10/03/16 20:33 Urine Ketones 1+ (NEGATIVE) H 10/03/16 20:33 Urine Blood Negative (NEGATIVE) 10/03/16 20:33 Urine Nitrite Negative (NEGATIVE) 10/03/16 20:33 Urine Bilirubin Negative (NEGATIVE) 10/03/16 20:33 Urine Urobilinogen Negative E.U./dl (0.2-1.0) 10/03/16 20:33 Ur Leukocyte Esterase Negative (NEGATIVE) 10/03/16 20:33 Urine RBC 4 /hpf (0-3) 10/03/16 20:33 Urine WBC 1 /hpf (3-5) 10/03/16 20:33 Ur Epithelial Cells Rare /hpf (FEW) 10/03/16 20:33 Urine Mucus Many 10/03/16 20:33 RPR Titer Nonreactive (NONREACTIVE) 10/04/16 06:05 LABS NOTED. Assessment: 10/04/16 16:39 WITHDRAWAL SYMPTOMS. Plan: CONTINUE DETOX. ADVISED PATIENT TO FOLLOW-UP WITH SPRAY GUN STRIPER AFTER DISCHARGE FROM DETOX FOR GENERAL MEDICAL ASSESSMENT AND FOR ABNORMAL ADMISSION LAB VALUES.
[2016-10-04] MEDS: THIAMINE HCL 100 MG TABLET (FP) PO SCH (22:49)
[2016-10-04] MEDS: TAMSULOSIN HCL 0.4 MG CAP.ER.24H (FP) PO SCH (22:49)
[2016-10-05] MEDS: GABAPENTIN 300 MG CAPSULE (FP) PO SCH ×3 (05:48→22:47)
[2016-10-05] MEDS: chlordiazePOXIDE HCL 25 MG CAPSULE PO SCH ×3 (05:48→17:27)
[2016-10-05] MEDS: PRENATAL VITAMINS W/ FOLIC ACID TABLET (FP) PO SCH (10:49)
[2016-10-05] MEDS: ASPIRIN 81 MG CHEWABLE TABLETS PO SCH (10:49)
[2016-10-05] MEDS: HYDROCHLOROTHIAZIDE 25 MG TABLET (FP) PO SCH (10:49)
[2016-10-05] MEDS: LOSARTAN POTASSIUM 50 MG TABLET (FP) PO SCH (10:49)
[2016-10-05] MEDS: VENLAFAXINE HCL 75 MG TABLET PO SCH (10:50)
[2016-10-05] MEDS: NICOTINE 21 MG/24 HOURS TOPICAL PATCH TD SCH (10:50)
--- NOTE | 2016-10-05 18:14 | PN ---
S CIWA - CIWA Score Nausea/Vomitin Muscle Tremors: 4-Moderate,w/Arms Extend Anxiety: 2 Agitation: 1-Slight > Activity Paroxysmal Sweats: 3 Orientation: 0-Oriented Tacttile Disturbances: 3-Moderate Itch/Numb/Burn Auditory Disturbances: 2-Mild Harshness/Frighten Visual Disturbances: 0-None Headache: 0-None Present CIWA-Ar Total Score: 17 BHS Progress Note (SOAP) Subjective: Constipation, Tremors, Body Aches, Sweating. Objective: PT. A & O X 3. 10/05/16 18:12 Vital Signs Temperature 98.5 F 10/05/16 17:46 Pulse Rate 87 10/05/16 17:46 Respiratory Rate 20 10/05/16 17:46 Blood Pressure 130/77 10/05/16 17:46 O2 Sat by Pulse Oximetry (%) Laboratory Last Values WBC 5.0 K/mm3 (4.0-10.0) 10/04/16 06:05 RBC 4.33 M/mm3 (4.00-5.60) 10/04/16 06:05 Hgb 14.8 GM/dL (11.7-16.9) 10/04/16 06:05 Hct 44.3 % (35.4-49) 10/04/16 06:05 MCV 102.3 fl (80-96) H 10/04/16 06:05 MCHC 33.3 g/dl (32.0-35.9) 10/04/16 06:05 RDW 15.3 % (11.9-15.9) 10/04/16 06:05 Plt Count 114 K/MM3 (134-434) L D 10/04/16 06:05 MPV 10.1 fl (7.5-11.1) 10/04/16 06:05 Sodium 142 mmol/L (136-145) 10/04/16 06:05 Potassium 3.8 mmol/L (3.5-5.1) 10/04/16 06:05 Chloride 104 mmol/L (98-107) 10/04/16 06:05 Carbon Dioxide 26 mmol/L (21-32) 10/04/16 06:05 Anion Gap 12 (8-16) 10/04/16 06:05 BUN 7 mg/dL (7-18) D 10/04/16 06:05 Creatinine 0.6 mg/dL (0.7-1.3) L 10/04/16 06:05 Creat Clearance w eGFR > 60 (>60) 10/04/16 06:05 Random Glucose 86 mg/dL (74-106) D 10/04/16 06:05 Calcium 9.0 mg/dL (8.5-10.1) 10/04/16 06:05 Total Bilirubin 0.9 mg/dL (0.2-1.0) D 10/04/16 06:05 AST 70 U/L (15-37) H D 10/04/16 06:05 ALT 66 U/L (12-78) D 10/04/16 06:05 Alkaline Phosphatase 59 U/L (45-117) 10/04/16 06:05 Total Protein 7.8 g/dl (6.4-8.2) 10/04/16 06:05 Albumin 4.1 g/dl (3.4-5.0) 10/04/16 06:05 Urine Color Yellow 10/03/16 20:33 Urine Appearance Clear 10/03/16 20:33 Urine pH 6.0 (5.0-8.0) 10/03/16 20:33 Ur Specific [place] 1.020 (1.005-1.025) 10/03/16 20:33 Urine Protein 1+ (NEGATIVE) H 10/03/16 20:33 Urine Glucose (UA) Negative (NEGATIVE) 10/03/16 20:33 Urine Ketones 1+ (NEGATIVE) H 10/03/16 20:33 Urine Blood Negative (NEGATIVE) 10/03/16 20:33 Urine Nitrite Negative (NEGATIVE) 10/03/16 20:33 Urine Bilirubin Negative (NEGATIVE) 10/03/16 20:33 Urine Urobilinogen Negative E.U./dl (0.2-1.0) 10/03/16 20:33 Ur Leukocyte Esterase Negative (NEGATIVE) 10/03/16 20:33 Urine RBC 4 /hpf (0-3) 10/03/16 20:33 Urine WBC 1 /hpf (3-5) 10/03/16 20:33 Ur Epithelial Cells Rare /hpf (FEW) 10/03/16 20:33 Urine Mucus Many 10/03/16 20:33 RPR Titer Nonreactive (NONREACTIVE) 10/04/16 06:05 LABS NOTED. Assessment: 10/05/16 18:13 WITHDRAWAL SYMPTOMS. Plan: CONTINUE DETOX. ADVISED PATIENT TO FOLLOW-UP WITH SUPPLIER MANAGER AFTER DISCHARGE FROM DETOX FOR GENERAL MEDICAL ASSESSMENT AND FOR ABNORMAL ADMISSION LAB VALUES.
[2016-10-05] MEDS: TAMSULOSIN HCL 0.4 MG CAP.ER.24H (FP) PO SCH (22:47)
[2016-10-05] MEDS: chlordiazePOXIDE 5 MG CAPSULE PO SCH (22:47)
[2016-10-05] MEDS: THIAMINE HCL 100 MG TABLET (FP) PO SCH (22:47)
[2016-10-06] MEDS: GABAPENTIN 300 MG CAPSULE (FP) PO SCH ×3 (05:50→22:48)
[2016-10-06] MEDS: chlordiazePOXIDE 5 MG CAPSULE PO SCH ×3 (05:50→17:12)
[2016-10-06] MEDS: NICOTINE 21 MG/24 HOURS TOPICAL PATCH TD SCH (10:45)
[2016-10-06] MEDS: LOSARTAN POTASSIUM 50 MG TABLET (FP) PO SCH (10:45)
[2016-10-06] MEDS: ASPIRIN 81 MG CHEWABLE TABLETS PO SCH (10:45)
[2016-10-06] MEDS: HYDROCHLOROTHIAZIDE 25 MG TABLET (FP) PO SCH (10:45)
[2016-10-06] MEDS: PRENATAL VITAMINS W/ FOLIC ACID TABLET (FP) PO SCH (10:45)
[2016-10-06] MEDS: VENLAFAXINE HCL 75 MG TABLET PO SCH (12:23)
--- NOTE | 2016-10-06 13:05 | EKG ---
Test Reason : Blood Pressure : / mmHG Vent. Rate : 090 BPM Atrial Rate : 090 BPM P-R Int : 176 ms QRS Dur : 142 ms QT Int : 424 ms P-R-T Axes : 044 -22 029 degrees QTc Int : 518 ms SINUS RHYTHM WITH FREQUENT PREMATURE VENTRICULAR COMPLEXES RIGHT BUNDLE BRANCH BLOCK ABNORMAL ECG WHEN COMPARED WITH ECG OF 20-JUN-2016 15:46, PREMATURE VENTRICULAR COMPLEXES ARE NOW PRESENT Confirmed by CAMILO FAIRCHILD, JACINDA ([id number]) on 10/06/2016 1:05:35 PM Referred By: Confirmed By:JACINDA PAGE MD
--- NOTE | 2016-10-06 13:28 | PN ---
BHS Progress Note (SOAP) Subjective: Sweating,interrupted sleep,restless Objective: 10/06/16 13:27 Vital Signs - 8 hr 10/06/16 10/06/16 10/06/16 06:26 09:27 13:18 Temperature 95.8 F L 97.2 F L 95.4 F L Pulse Rate 104 H 106 H 108 H Respiratory 18 20 18 Rate Blood Pressure 121/84 100/66 109/74 Laboratory Last Values WBC 5.0 K/mm3 (4.0-10.0) 10/04/16 06:05 RBC 4.33 M/mm3 (4.00-5.60) 10/04/16 06:05 Hgb 14.8 GM/dL (11.7-16.9) 10/04/16 06:05 Hct 44.3 % (35.4-49) 10/04/16 06:05 MCV 102.3 fl (80-96) H 10/04/16 06:05 MCHC 33.3 g/dl (32.0-35.9) 10/04/16 06:05 RDW 15.3 % (11.9-15.9) 10/04/16 06:05 Plt Count 114 K/MM3 (134-434) L D 10/04/16 06:05 MPV 10.1 fl (7.5-11.1) 10/04/16 06:05 Sodium 142 mmol/L (136-145) 10/04/16 06:05 Potassium 3.8 mmol/L (3.5-5.1) 10/04/16 06:05 Chloride 104 mmol/L (98-107) 10/04/16 06:05 Carbon Dioxide 26 mmol/L (21-32) 10/04/16 06:05 Anion Gap 12 (8-16) 10/04/16 06:05 BUN 7 mg/dL (7-18) D 10/04/16 06:05 Creatinine 0.6 mg/dL (0.7-1.3) L 10/04/16 06:05 Creat Clearance w eGFR > 60 (>60) 10/04/16 06:05 Random Glucose 86 mg/dL (74-106) D 10/04/16 06:05 Calcium 9.0 mg/dL (8.5-10.1) 10/04/16 06:05 Total Bilirubin 0.9 mg/dL (0.2-1.0) D 10/04/16 06:05 AST 70 U/L (15-37) H D 10/04/16 06:05 ALT 66 U/L (12-78) D 10/04/16 06:05 Alkaline Phosphatase 59 U/L (45-117) 10/04/16 06:05 Total Protein 7.8 g/dl (6.4-8.2) 10/04/16 06:05 Albumin 4.1 g/dl (3.4-5.0) 10/04/16 06:05 Urine Color Yellow 10/03/16 20:33 Urine Appearance Clear 10/03/16 20:33 Urine pH 6.0 (5.0-8.0) 10/03/16 20:33 Ur Specific [place] 1.020 (1.005-1.025) 10/03/16 20:33 Urine Protein 1+ (NEGATIVE) H 10/03/16 20:33 Urine Glucose (UA) Negative (NEGATIVE) 10/03/16 20:33 Urine Ketones 1+ (NEGATIVE) H 10/03/16 20:33 Urine Blood Negative (NEGATIVE) 10/03/16 20:33 Urine Nitrite Negative (NEGATIVE) 10/03/16 20:33 Urine Bilirubin Negative (NEGATIVE) 10/03/16 20:33 Urine Urobilinogen Negative E.U./dl (0.2-1.0) 10/03/16 20:33 Ur Leukocyte Esterase Negative (NEGATIVE) 10/03/16 20:33 Urine RBC 4 /hpf (0-3) 10/03/16 20:33 Urine WBC 1 /hpf (3-5) 10/03/16 20:33 Ur Epithelial Cells Rare /hpf (FEW) 10/03/16 20:33 Urine Mucus Many 10/03/16 20:33 RPR Titer Nonreactive (NONREACTIVE) 10/04/16 06:05 labs noted Assessment: 10/06/16 13:28 Withdrawal sx, Plan: Continue detox
[2016-10-06] MEDS ORDERED: ONDANSETRON *ODT* 4 MG TABLET SL PRN (13:29)
[2016-10-06] MEDS: chlordiazePOXIDE HCL 10 MG CAPSULE PO SCH (22:48)
[2016-10-06] MEDS: TAMSULOSIN HCL 0.4 MG CAP.ER.24H (FP) PO SCH (22:48)
[2016-10-06] MEDS: THIAMINE HCL 100 MG TABLET (FP) PO SCH (22:49)
[2016-10-07] MEDS: GABAPENTIN 300 MG CAPSULE (FP) PO SCH (05:56)
[2016-10-07] MEDS: chlordiazePOXIDE HCL 10 MG CAPSULE PO SCH ×2 (05:56→10:45)
--- NOTE | 2016-10-07 09:24 | DS ---
[facility] Detox Discharge Summary Admission Date: 10/03/16 Discharge Date: 10/07/16 - History Present History: Alcohol Dependence Additional Comments: DETOX COMPLETED.ALERT O X 3. NAD. PT INSTRUCTED TO FOLLOW UP WITH HIS PMD, DR Donaldo [facility] IN [place] FOR MEDICAL MANAGEMENT. Pertinent Past History: S/P PACEMAKER HTN COPD BPH PROSTATE CA HARD OF HEARING RIGHT EAR - Physical Exam Results Vital Signs: Vital Signs Temperature 97.3 F L 10/07/16 06:37 Pulse Rate 96 H 10/07/16 06:37 Respiratory Rate 18 10/07/16 06:37 Blood Pressure 122/81 10/07/16 06:37 O2 Sat by Pulse Oximetry (%) Pertinent Admission Physical Exam Findings: WITHDRAWAL SX - Treatment Hospital Course: Detox Protocol Followed, Detoxed Safely, Responded well, Discharged Condition Good, Rehab Referral Accepted Patient has Accepted a Rehab Referral to: [facility] - Medication Discharge Medications: Ambulatory Orders Aspirin [ASA -] 81 mg PO DAILY 08/30/15 Hydrochlorothiazide [Hctz -] 25 mg PO DAILY #30 tablet 09/03/15 Tamsulosin HCl [Flomax -] 0.4 mg PO DAILY #30 cap.er.24h 09/03/15 Albuterol Sulfate Inhaler - [Ventolin Hfa Inhaler -] 2 inh PO Q4H PRN 06/20/16 Cyclobenzaprine HCl [Flexeril -] 10 mg PO TID 06/20/16 Gabapentin [Neurontin -] 300 mg PO Q8H 06/20/16 Losartan Potassium [Cozaar -] 25 mg PO DAILY 10/03/16 - Diagnosis (1) Alcohol dependence with uncomplicated withdrawal Current Visit: Yes Status: Acute (2) Nicotine dependence Current Visit: Yes Status: Acute Qualifiers: Nicotine product type: cigarettes Substance use status: in withdrawal Qualified Code(s): F17.213 - Nicotine dependence, cigarettes, with withdrawal (3) COPD (chronic obstructive pulmonary disease) Current Visit: Yes Status: Chronic Qualifiers: COPD type: unspecified COPD Qualified Code(s): J44.9 - Chronic obstructive pulmonary disease, unspecified (4) Essential hypertension Current Visit: Yes Status: Chronic (5) GERD (gastroesophageal reflux disease) Current Visit: Yes Status: Chronic Qualifiers: Esophagitis presence: without esophagitis Qualified Code(s): K21.9 - Gastro-esophageal reflux disease without esophagitis (6) Hard of hearing Current Visit: Yes Status: Chronic Qualifiers: Hearing loss type: conductive Laterality: right Contralateral hearing status: unspecified Qualified Code(s): H90.11 - Conductive hearing loss, unilateral, right ear, with unrestricted hearing on the contralateral side (7) History of pacemaker Current Visit: Yes Status: Chronic (8) History of prostate cancer Current Visit: Yes Status: Suspected (9) BPH (benign prostatic hyperplasia) Current Visit: Yes Status: Chronic Qualifiers: Prostatic enlargement morphology: unspecified morphology Lower urinary tract symptom presence: symptoms absent Qualified Code(s): N40.0 - Benign prostatic hyperplasia without lower urinary tract symptoms - AMA Did Patient Leave Against Medical Advice: No
[2016-10-07 10:36] VITALS: BP 110/74; PULSE 105; TEMP 96
[2016-10-07] MEDS: LOSARTAN POTASSIUM 50 MG TABLET (FP) PO SCH (10:43)
[2016-10-07] MEDS: HYDROCHLOROTHIAZIDE 25 MG TABLET (FP) PO SCH (10:43)
[2016-10-07] MEDS: VENLAFAXINE HCL 75 MG TABLET PO SCH (10:43)
[2016-10-07] MEDS: ASPIRIN 81 MG CHEWABLE TABLETS PO SCH (10:43)
[2016-10-07] MEDS: PRENATAL VITAMINS W/ FOLIC ACID TABLET (FP) PO SCH (10:43)
[2016-10-07] MEDS: NICOTINE 21 MG/24 HOURS TOPICAL PATCH TD SCH (10:44)
== END 2016-10-07 13:48 | disposition home or self-care (01) | DRG 775 ==
LOC: YASAS 12:48 → Y3N 18:12
PROVIDERS: ADMIT Internal Medicine Addiction Medicine; ATTEND Internal Medicine Addiction Medicine
PROC: HZ2ZZZZ Detoxification Services for Substance Abuse Treatment (ICD-10-PCS; principal; 2016-10-03)
DX: F10.230 Alcohol dependence with withdrawal, uncomplicated (principal); F17.213 Nicotine dependence, cigarettes, with withdrawal; F41.9 Anxiety disorder, unspecified; F33.9 Major depressive disorder, recurrent, unspecified; J44.9 Chronic obstructive pulmonary disease, unspecified; I10 Essential (primary) hypertension; K21.9 Gastro-esophageal reflux disease without esophagitis; H90.11 Conductive hearing loss, unilateral, right ear, with unrestricted hearing on the contralateral side; Z95.0 Presence of cardiac pacemaker; Z85.46 Personal history of malignant neoplasm of prostate; N40.0 Benign prostatic hyperplasia without lower urinary tract symptoms; M54.5 Low back pain; R00.0 Tachycardia, unspecified
CPT/HCPCS: 36415; 80053; 81003; 81015; 85027; 86593; 93005; 93010

== ENCOUNTER 2016-10-09 12:02 | Inpatient (IN) | payer OTHER ==
[2016-10-09 14:08] VITALS: BMI 27.3
[2016-10-09] MEDS ORDERED: ACETAMINOPHEN 325 MG TABLET (FP) PO PRN (14:51)
[2016-10-09] MEDS ORDERED: P-EPHED 60MG/TRIPROLIDI 2.5MG TABLET PO PRN (14:51)
[2016-10-09] MEDS ORDERED: MAGNESIUM HYDROX 2400MG/30ML ORAL SUSPENSION 30 ML CUP PO PRN (14:51)
[2016-10-09] MEDS ORDERED: LOPERAMIDE HCL 2 MG CAPSULE PO PRN (14:51)
[2016-10-09] MEDS ORDERED: MENTHOL/PHENOL 1 EACH UD MM PRN (14:51)
[2016-10-09] MEDS ORDERED: MAGNESIUM CITRATE 300 ML BOTTLE PO PRN (14:51)
[2016-10-09] MEDS ORDERED: guaiFENesin/D-METHORPHAN HB 10 ML UNIT-DOSE CUPS PO PRN (14:51)
[2016-10-09] MEDS ORDERED: ALBUTEROL SO4 6.7 GM HFA INHALER IH PRN (15:17)
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
[2016-10-09] MEDS: GABAPENTIN 300 MG CAPSULE (FP) PO SCH ×2 (19:31→21:49)
[2016-10-09] MEDS: TAMSULOSIN HCL 0.4 MG CAP.ER.24H (FP) PO SCH (21:49)
[2016-10-09] MEDS: THIAMINE HCL 100 MG TABLET (FP) PO SCH (21:49)
--- NOTE | 2016-10-09 22:03 | HP ---
ZORAIDA FAIRCHILD Rehab Assess/Revision - Admission History Admitted to Rehab [facility] Date of Admission to Rehab: 10/09/18 - Vital signs Vital Signs: Vital Signs Period Temp Pulse Resp BP Sys/Maxwell Pulse Ox Last 24 Hr 96 F 118-118 20 106-129/75-86 - Findings Detox History & Physical reviewed: Yes Concur with findings: Yes Comments/Additional Findings: completed detox 10/07/16, return for rehab with available bed 10/09/16.
[2016-10-10] MEDS: GABAPENTIN 300 MG CAPSULE (FP) PO SCH ×3 (06:07→21:48)
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
[2016-10-10] MEDS ORDERED: PT OWN MED DRAWER 7, Y5N ONE (08:41)
[2016-10-10] MEDS: LOSARTAN POTASSIUM 25 MG TABLET PO SCH (09:57)
[2016-10-10] MEDS: PRENATAL VITAMINS W/ FOLIC ACID TABLET (FP) PO SCH (09:57)
[2016-10-10] MEDS: TAMSULOSIN HCL 0.4 MG CAP.ER.24H (FP) PO SCH ×2 (09:57→21:47)
[2016-10-10] MEDS: ASPIRIN 81 MG CHEWABLE TABLETS PO SCH (09:57)
[2016-10-10] MEDS: HYDROCHLOROTHIAZIDE 25 MG TABLET (FP) PO SCH (09:57)
--- NOTE | 2016-10-10 10:46 | EKG ---
Test Reason : Blood Pressure : / mmHG Vent. Rate : 091 BPM Atrial Rate : 091 BPM P-R Int : 172 ms QRS Dur : 156 ms QT Int : 426 ms P-R-T Axes : 062 007 040 degrees QTc Int : 523 ms NORMAL SINUS RHYTHM RIGHT BUNDLE BRANCH BLOCK ABNORMAL ECG WHEN COMPARED WITH ECG OF 03-OCT-2016 18:41, PREMATURE VENTRICULAR COMPLEXES ARE NO LONGER PRESENT Confirmed by BONNIE FAIRCHILD, NAYA ([id number]) on 10/10/2016 10:46:07 AM Referred By: Geeta Daniel Confirmed By:NAYA NICOLE MD
[2016-10-10] MEDS: THIAMINE HCL 100 MG TABLET (FP) PO SCH (21:47)
[2016-10-11] MEDS: GABAPENTIN 300 MG CAPSULE (FP) PO SCH ×3 (06:35→21:48)
[2016-10-11] MEDS ORDERED: PT OWN MED DRAWER 7, Y5N ONE (08:36)
[2016-10-11] MEDS: PRENATAL VITAMINS W/ FOLIC ACID TABLET (FP) PO SCH (09:24)
[2016-10-11] MEDS: TAMSULOSIN HCL 0.4 MG CAP.ER.24H (FP) PO SCH ×2 (09:24→21:47)
[2016-10-11] MEDS: ASPIRIN 81 MG CHEWABLE TABLETS PO SCH (09:24)
[2016-10-11] MEDS: HYDROCHLOROTHIAZIDE 25 MG TABLET (FP) PO SCH (09:24)
[2016-10-11] MEDS: LOSARTAN POTASSIUM 25 MG TABLET PO SCH (10:55)
[2016-10-11] MEDS: THIAMINE HCL 100 MG TABLET (FP) PO SCH (21:47)
[2016-10-12] MEDS: GABAPENTIN 300 MG CAPSULE (FP) PO SCH ×3 (06:45→21:29)
[2016-10-12] MEDS ORDERED: PT OWN MED DRAWER 7, Y5N ONE ×2 (08:25→11:33)
[2016-10-12] MEDS: PRENATAL VITAMINS W/ FOLIC ACID TABLET (FP) PO SCH (09:34)
[2016-10-12] MEDS: TAMSULOSIN HCL 0.4 MG CAP.ER.24H (FP) PO SCH ×2 (09:34→21:29)
[2016-10-12] MEDS: LOSARTAN POTASSIUM 25 MG TABLET PO SCH (09:34)
[2016-10-12] MEDS: ASPIRIN 81 MG CHEWABLE TABLETS PO SCH (09:34)
[2016-10-12] MEDS: HYDROCHLOROTHIAZIDE 25 MG TABLET (FP) PO SCH (09:35)
[2016-10-12] MEDS: THIAMINE HCL 100 MG TABLET (FP) PO SCH (21:29)
[2016-10-13] MEDS: GABAPENTIN 300 MG CAPSULE (FP) PO SCH ×3 (06:15→21:45)
[2016-10-13] MEDS ORDERED: PT OWN MED DRAWER 7, Y5N ONE (08:33)
[2016-10-13] MEDS: TAMSULOSIN HCL 0.4 MG CAP.ER.24H (FP) PO SCH ×2 (09:53→21:45)
[2016-10-13] MEDS: PRENATAL VITAMINS W/ FOLIC ACID TABLET (FP) PO SCH (09:53)
[2016-10-13] MEDS: HYDROCHLOROTHIAZIDE 25 MG TABLET (FP) PO SCH (09:53)
[2016-10-13] MEDS: ASPIRIN 81 MG CHEWABLE TABLETS PO SCH (09:53)
[2016-10-13] MEDS: LOSARTAN POTASSIUM 25 MG TABLET PO SCH (09:53)
[2016-10-13] MEDS: hydrOXYzine PAMOATE 25 MG CAPSULE (FP) PO PRN (14:46)
[2016-10-13] MEDS: THIAMINE HCL 100 MG TABLET (FP) PO SCH (21:45)
[2016-10-13] MEDS: diphenhydrAMINE HCL 50 MG CAPSULE PO PRN (21:45)
[2016-10-13] MEDS: MAG HYDROX/AL HYDROX/SIMETH 30 ML UNIT-DOSE CUP PO PRN (23:09)
[2016-10-14] MEDS: GABAPENTIN 300 MG CAPSULE (FP) PO SCH ×3 (06:11→21:54)
[2016-10-14] MEDS: LOSARTAN POTASSIUM 25 MG TABLET PO SCH (09:05)
[2016-10-14] MEDS: MAG HYDROX/AL HYDROX/SIMETH 30 ML UNIT-DOSE CUP PO PRN ×3 (09:05→23:13)
[2016-10-14] MEDS: PRENATAL VITAMINS W/ FOLIC ACID TABLET (FP) PO SCH (09:05)
[2016-10-14] MEDS: TAMSULOSIN HCL 0.4 MG CAP.ER.24H (FP) PO SCH ×2 (09:05→21:54)
[2016-10-14] MEDS: ASPIRIN 81 MG CHEWABLE TABLETS PO SCH (09:05)
[2016-10-14] MEDS: HYDROCHLOROTHIAZIDE 25 MG TABLET (FP) PO SCH (09:05)
[2016-10-14] MEDS: THIAMINE HCL 100 MG TABLET (FP) PO SCH (21:54)
[2016-10-14] MEDS: diphenhydrAMINE HCL 50 MG CAPSULE PO PRN (23:26)
[2016-10-15] MEDS: GABAPENTIN 300 MG CAPSULE (FP) PO SCH ×3 (06:18→21:36)
[2016-10-15] MEDS: MAG HYDROX/AL HYDROX/SIMETH 30 ML UNIT-DOSE CUP PO PRN ×3 (06:21→21:36)
[2016-10-15] MEDS: HYDROCHLOROTHIAZIDE 25 MG TABLET (FP) PO SCH (09:35)
[2016-10-15] MEDS: PRENATAL VITAMINS W/ FOLIC ACID TABLET (FP) PO SCH (09:35)
[2016-10-15] MEDS: ASPIRIN 81 MG CHEWABLE TABLETS PO SCH (09:35)
[2016-10-15] MEDS: LOSARTAN POTASSIUM 25 MG TABLET PO SCH (09:35)
[2016-10-15] MEDS: TAMSULOSIN HCL 0.4 MG CAP.ER.24H (FP) PO SCH ×2 (09:35→21:35)
[2016-10-15] MEDS ORDERED: PT OWN MED DRAWER 7, Y5N ONE (12:20)
[2016-10-15] MEDS: THIAMINE HCL 100 MG TABLET (FP) PO SCH (21:35)
[2016-10-15] MEDS: diphenhydrAMINE HCL 50 MG CAPSULE PO PRN (21:36)
[2016-10-16] MEDS: GABAPENTIN 300 MG CAPSULE (FP) PO SCH ×3 (07:05→21:33)
[2016-10-16] MEDS: ASPIRIN 81 MG CHEWABLE TABLETS PO SCH (09:37)
[2016-10-16] MEDS: TAMSULOSIN HCL 0.4 MG CAP.ER.24H (FP) PO SCH ×2 (09:37→21:33)
[2016-10-16] MEDS: LOSARTAN POTASSIUM 25 MG TABLET PO SCH (09:37)
[2016-10-16] MEDS: HYDROCHLOROTHIAZIDE 25 MG TABLET (FP) PO SCH (09:37)
[2016-10-16] MEDS: MAG HYDROX/AL HYDROX/SIMETH 30 ML UNIT-DOSE CUP PO PRN ×2 (09:38→16:23)
[2016-10-16] MEDS: PRENATAL VITAMINS W/ FOLIC ACID TABLET (FP) PO SCH (09:38)
[2016-10-16] MEDS: THIAMINE HCL 100 MG TABLET (FP) PO SCH (21:32)
[2016-10-16] MEDS: diphenhydrAMINE HCL 50 MG CAPSULE PO PRN ×2 (21:33→23:53)
[2016-10-17] MEDS: GABAPENTIN 300 MG CAPSULE (FP) PO SCH ×3 (05:47→21:25)
[2016-10-17] MEDS: HYDROCHLOROTHIAZIDE 25 MG TABLET (FP) PO SCH (10:09)
[2016-10-17] MEDS: LOSARTAN POTASSIUM 25 MG TABLET PO SCH (10:09)
[2016-10-17] MEDS: TAMSULOSIN HCL 0.4 MG CAP.ER.24H (FP) PO SCH ×2 (10:09→21:24)
[2016-10-17] MEDS: ASPIRIN 81 MG CHEWABLE TABLETS PO SCH (10:10)
[2016-10-17] MEDS: PRENATAL VITAMINS W/ FOLIC ACID TABLET (FP) PO SCH (10:10)
[2016-10-17] MEDS: MAG HYDROX/AL HYDROX/SIMETH 30 ML UNIT-DOSE CUP PO PRN (14:22)
[2016-10-17] MEDS: diphenhydrAMINE HCL 50 MG CAPSULE PO PRN ×2 (21:25→23:30)
[2016-10-17] MEDS: THIAMINE HCL 100 MG TABLET (FP) PO SCH (21:25)
[2016-10-18] MEDS: GABAPENTIN 300 MG CAPSULE (FP) PO SCH ×3 (06:05→21:33)
[2016-10-18] MEDS: TAMSULOSIN HCL 0.4 MG CAP.ER.24H (FP) PO SCH ×2 (09:32→21:32)
[2016-10-18] MEDS: HYDROCHLOROTHIAZIDE 25 MG TABLET (FP) PO SCH (09:32)
[2016-10-18] MEDS: PRENATAL VITAMINS W/ FOLIC ACID TABLET (FP) PO SCH (09:32)
[2016-10-18] MEDS: ASPIRIN 81 MG CHEWABLE TABLETS PO SCH (09:32)
[2016-10-18] MEDS: LOSARTAN POTASSIUM 25 MG TABLET PO SCH (09:32)
[2016-10-18] MEDS: MAG HYDROX/AL HYDROX/SIMETH 30 ML UNIT-DOSE CUP PO PRN (12:58)
[2016-10-18] MEDS: diphenhydrAMINE HCL 50 MG CAPSULE PO PRN ×2 (21:31→23:54)
[2016-10-18] MEDS: THIAMINE HCL 100 MG TABLET (FP) PO SCH (21:33)
[2016-10-19] MEDS: GABAPENTIN 300 MG CAPSULE (FP) PO SCH ×3 (06:14→21:16)
[2016-10-19] MEDS: LOSARTAN POTASSIUM 25 MG TABLET PO SCH (09:36)
[2016-10-19] MEDS: PRENATAL VITAMINS W/ FOLIC ACID TABLET (FP) PO SCH (09:36)
[2016-10-19] MEDS: ASPIRIN 81 MG CHEWABLE TABLETS PO SCH (09:36)
[2016-10-19] MEDS: TAMSULOSIN HCL 0.4 MG CAP.ER.24H (FP) PO SCH ×2 (09:36→21:16)
[2016-10-19] MEDS: HYDROCHLOROTHIAZIDE 25 MG TABLET (FP) PO SCH (09:37)
[2016-10-19] MEDS: MAG HYDROX/AL HYDROX/SIMETH 30 ML UNIT-DOSE CUP PO PRN (14:41)
[2016-10-19] MEDS: diphenhydrAMINE HCL 50 MG CAPSULE PO PRN ×2 (21:16→22:21)
[2016-10-19] MEDS: THIAMINE HCL 100 MG TABLET (FP) PO SCH (21:16)
[2016-10-20] MEDS: GABAPENTIN 300 MG CAPSULE (FP) PO SCH ×3 (05:59→21:17)
[2016-10-20] MEDS: PRENATAL VITAMINS W/ FOLIC ACID TABLET (FP) PO SCH (09:41)
[2016-10-20] MEDS: TAMSULOSIN HCL 0.4 MG CAP.ER.24H (FP) PO SCH ×2 (09:41→21:17)
[2016-10-20] MEDS: ASPIRIN 81 MG CHEWABLE TABLETS PO SCH (09:42)
[2016-10-20] MEDS: HYDROCHLOROTHIAZIDE 25 MG TABLET (FP) PO SCH (09:42)
[2016-10-20] MEDS: LOSARTAN POTASSIUM 25 MG TABLET PO SCH (09:42)
[2016-10-20] MEDS: IBUPROFEN 400 MG TABLET (FP) PO PRN ×2 (12:32→21:18)
[2016-10-20] MEDS: THIAMINE HCL 100 MG TABLET (FP) PO SCH (21:17)
[2016-10-20] MEDS: diphenhydrAMINE HCL 50 MG CAPSULE PO PRN ×2 (21:17→22:16)
[2016-10-21] MEDS: GABAPENTIN 300 MG CAPSULE (FP) PO SCH ×3 (06:09→21:32)
[2016-10-21] MEDS ORDERED: PT OWN MED DRAWER 7, Y5N ONE (08:31)
[2016-10-21] MEDS: TAMSULOSIN HCL 0.4 MG CAP.ER.24H (FP) PO SCH ×2 (09:34→21:32)
[2016-10-21] MEDS: ASPIRIN 81 MG CHEWABLE TABLETS PO SCH (09:34)
[2016-10-21] MEDS: PRENATAL VITAMINS W/ FOLIC ACID TABLET (FP) PO SCH (09:34)
[2016-10-21] MEDS: LOSARTAN POTASSIUM 25 MG TABLET PO SCH (09:34)
[2016-10-21] MEDS: HYDROCHLOROTHIAZIDE 25 MG TABLET (FP) PO SCH (09:34)
[2016-10-21] MEDS: IBUPROFEN 400 MG TABLET (FP) PO PRN ×2 (13:32→21:33)
[2016-10-21] MEDS: hydrOXYzine PAMOATE 25 MG CAPSULE (FP) PO PRN (21:32)
[2016-10-21] MEDS: THIAMINE HCL 100 MG TABLET (FP) PO SCH (21:32)
[2016-10-21] MEDS: diphenhydrAMINE HCL 50 MG CAPSULE PO PRN (22:35)
[2016-10-22] MEDS: GABAPENTIN 300 MG CAPSULE (FP) PO SCH (06:04)
[2016-10-22 07:02] VITALS: BP 127/80; PULSE 88; TEMP 97.7
[2016-10-22] MEDS: TAMSULOSIN HCL 0.4 MG CAP.ER.24H (FP) PO SCH (09:00)
[2016-10-22] MEDS: HYDROCHLOROTHIAZIDE 25 MG TABLET (FP) PO SCH (09:00)
[2016-10-22] MEDS: ASPIRIN 81 MG CHEWABLE TABLETS PO SCH (09:00)
[2016-10-22] MEDS: PRENATAL VITAMINS W/ FOLIC ACID TABLET (FP) PO SCH (09:00)
[2016-10-22] MEDS: LOSARTAN POTASSIUM 25 MG TABLET PO SCH (09:01)
--- NOTE | 2016-10-22 09:26 | PN ---
Psychiatric Progress Note Vital Signs: Vital Signs Period Temp Pulse Resp BP Sys/Maxwell Pulse Ox Last 24 Hr 97.7 F 88-96 18-18 127-141/80-80 Date of Session: 10/22/16 Chief Complaint:: Discharge visit HPI: Patient addressed alcohol dependence comorbid with MDD. ROS: Significant for BPH,COD,HTN. Current Medications: Active Medications Generic Name Dose Route Start Last Admin Trade Name Freq PRN Reason Stop Dose Admin Acetaminophen 650 mg 10/09/16 14:51 Tylenol - PO Q4H PRN FEVER OR PAIN Al Hydroxide/Mg Hydroxide 30 ml 10/09/16 14:51 10/19/16 14:41 Mylanta Oral Suspension - PO 30 ml Q6H PRN Administration DYSPEPSIA Albuterol Sulfate 2 puff 10/09/16 15:17 Ventolin Hfa Inhaler - IH Q4H PRN ASTHMA Aspirin 81 mg 10/10/16 10:00 10/22/16 09:00 Asa - PO 81 mg DAILY CHRISTIANNE Administration Diphenhydramine HCl 50 mg 10/09/16 14:51 10/21/16 22:35 Benadryl - PO 50 mg HSMR1 PRN Administration FOR ITCHING Eucalyptus/Menthol/Phenol/Sorbitol 1 each 10/09/16 14:51 Cepastat Lozenge - MM Q4H PRN SORE THROAT Gabapentin 300 mg 10/09/16 15:30 10/22/16 06:04 Neurontin - PO 300 mg TID CHRISTIANNE Administration Guaifenesin 10 ml 10/09/16 14:51 Robitussin Dm - PO Q6H PRN COUGH Hydrochlorothiazide 25 mg 10/10/16 10:00 10/22/16 09:00 Hctz - PO 25 mg DAILY CHRISTIANNE Administration Hydroxyzine Pamoate 25 mg 10/09/16 14:51 10/21/16 21:32 Vistaril - PO 25 mg Q4H PRN Administration AGITATION Ibuprofen 400 mg 10/09/16 14:51 10/21/16 21:33 Motrin - PO 400 mg Q6H PRN Administration PAIN Loperamide HCl 4 mg 10/09/16 14:51 Imodium - PO Q6H PRN DIARRHEA Losartan Potassium 25 mg 10/10/16 10:00 10/22/16 09:01 Cozaar - PO 25 mg DAILY CHRISTIANNE Administration Magnesium Hydroxide 30 ml 05/18/17 14:51 Milk Of Magnesia - PO DAILY PRN CONSTIPATION Multivit/Folic Acid/Iron 1 tab 10/10/16 10:00 10/22/16 09:00 Vitamins (Sjr) - PO 1 tab DAILY CHRISTIANNE Administration Pseudoephedrine/Triprolidine 1 combo 10/09/16 14:51 Actifed - PO TID PRN NASAL CONGESTION Tamsulosin HCl 0.4 mg 10/09/16 22:00 10/22/16 09:00 Flomax - PO 0.4 mg BID CHRISTIANNE Administration Thiamine HCl 100 mg 10/09/16 22:00 10/21/16 21:32 Vitamin B1 - PO 100 mg HS CHRISTIANNE Administration Current Side Effect: No Lab tests ordered: No Lab tests reviewed: Yes Provider note:: Patient completed this program today.He has met his treatment goals and will continue to address his issues on outpatient basis.Patient continues to find that Gabapentin 300 mg po tid helps him to maintain mood stability and will continue to take it on outpatinet.script for 30 days supply provided. supportive therapy provided focusing on relapse prevention.Support system ,coping utlization has been discussed as well. Patient is stable for discharge today. Total face to face time:: 30 Mental Status Exam - Mental Status Exam Alert and Oriented to: Time, Place, Person Cognitive Function: Grossly Intact Patient Appearance: Well Groomed Mood: Hopeful, Euthymic Affect: Mood Congruent Patient Behavior: Appropriate, Cooperative Speech Pattern: Clear Voice Loudness: Normal Thought Process: Goal Oriented Thought Disorder: Not Present Hallucinations: Denies Suicidal Ideation: Denies Homicidal Ideation: Denies Insight/Judgement: Fair Sleep: Fair Appetite: Good Muscle strength/Tone: Normal Gait/Station: Normal Psychiatric Treatment Plan - Problem List (2) Nicotine dependence Qualifiers: Nicotine product type: cigarettes Substance use status: in withdrawal Qualified Code(s): F17.213 - Nicotine dependence, cigarettes, with withdrawal (4) BPH (benign prostatic hyperplasia) Qualifiers: Prostatic enlargement morphology: unspecified morphology Lower urinary tract symptom presence: symptoms absent Qualified Code(s): N40.0 - Benign prostatic hyperplasia without lower urinary tract symptoms (5) COPD (chronic obstructive pulmonary disease) Qualifiers: COPD type: unspecified COPD Qualified Code(s): J44.9 - Chronic obstructive pulmonary disease, unspecified (7) GERD (gastroesophageal reflux disease) Qualifiers: Esophagitis presence: without esophagitis Qualified Code(s): K21.9 - Gastro-esophageal reflux disease without esophagitis (8) MDD (major depressive disorder) Qualifiers: Major depression recurrence: recurrent Active/Remission status: in remission of unspecified degree Qualified Code(s): F33.40 - Major depressive disorder, recurrent, in remission, unspecified (9) History of prostate cancer Comment: PT STATES CURRENTLY GOING THROUGH PROCESS FOR SX THEN RADIATION [place] AFTER DETOX
[2016-10-22] MEDS: IBUPROFEN 400 MG TABLET (FP) PO PRN (09:41)
== END 2016-10-22 09:53 | disposition home or self-care (01) | DRG 772 ==
LOC: YASAS 12:02 → Y3W 15:20
PROVIDERS: ADMIT Psychiatry & Neurology Psychiatry; ATTEND Psychiatry & Neurology Psychiatry
PROC: HZ42ZZZ Group Counseling for Substance Abuse Treatment, Cognitive-Behavioral (ICD-10-PCS; principal; 2016-10-22)
DX: F10.230 Alcohol dependence with withdrawal, uncomplicated (principal); F17.213 Nicotine dependence, cigarettes, with withdrawal; F33.40 Major depressive disorder, recurrent, in remission, unspecified; I10 Essential (primary) hypertension; J44.9 Chronic obstructive pulmonary disease, unspecified; K21.9 Gastro-esophageal reflux disease without esophagitis; H90.11 Conductive hearing loss, unilateral, right ear, with unrestricted hearing on the contralateral side; N40.0 Benign prostatic hyperplasia without lower urinary tract symptoms; C61 Malignant neoplasm of prostate; Z95.0 Presence of cardiac pacemaker
CPT/HCPCS: 93005; 93010

== ENCOUNTER 2017-04-13 18:54 | Inpatient (IN) | payer OTHER ==
[2017-04-13 20:10] VITALS: BMI 27.1
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
[2017-04-13] MEDS ORDERED: P-EPHED 60MG/TRIPROLIDI 2.5MG TABLET PO PRN (22:14)
[2017-04-13] MEDS ORDERED: chlordiazePOXIDE HCL 25 MG CAPSULE PO PRN (22:14)
[2017-04-13] MEDS ORDERED: guaiFENesin/D-METHORPHAN HB 10 ML UNIT-DOSE CUPS PO PRN (22:14)
[2017-04-13] MEDS ORDERED: LOPERAMIDE HCL 2 MG CAPSULE PO PRN (22:14)
[2017-04-13] MEDS ORDERED: NICOTINE POLACRILEX 2 MG GUM BC PRN (22:14)
[2017-04-13] MEDS ORDERED: ACETAMINOPHEN 325 MG TABLET (FP) PO PRN (22:14)
[2017-04-13] MEDS ORDERED: MAG HYDROX/AL HYDROX/SIMETH 30 ML UNIT-DOSE CUP PO PRN (22:14)
[2017-04-13] MEDS ORDERED: IBUPROFEN 400 MG TABLET (FP) PO PRN (22:14)
[2017-04-13] MEDS ORDERED: MAGNESIUM HYDROX 2400MG/30ML ORAL SUSPENSION 30 ML CUP PO PRN (22:14)
[2017-04-13] MEDS ORDERED: MAGNESIUM CITRATE 300 ML BOTTLE PO PRN (22:14)
[2017-04-13] MEDS ORDERED: MENTHOL/PHENOL 1 EACH UD MM PRN (22:14)
[2017-04-13] MEDS: chlordiazePOXIDE HCL 25 MG CAPSULE PO SCH (23:04)
[2017-04-14 00:48] LABS: URINE APPEARANCE CLEAR; URINE BILIRUBIN NEGATIVE (NEGATIVE); URINE BLOOD NEGATIVE (NEGATIVE); URINE COLOR DKYELLOW; URINE GLUCOSE (UA) NEGATIVE (NEGATIVE); URINE KETONE NEGATIVE (NEGATIVE); URINE NITRITE NEGATIVE (NEGATIVE); URINE PROTEIN NEGATIVE (NEGATIVE); URINE UROBILINOGEN 4.0 E.U/dl mg/dL (0.2-1.0)
[2017-04-14] MEDS: GABAPENTIN 300 MG CAPSULE (FP) PO SCH ×3 (06:10→22:05)
[2017-04-14] MEDS: chlordiazePOXIDE HCL 25 MG CAPSULE PO SCH ×4 (06:10→22:05)
[2017-04-14 09:45] LABS: MCH 33.6 pg (25.7-33.7); MCHC 33.5 g/dl (32.0-35.9); MEAN CELL VOLUME 100.4 fl (80-96); MEAN PLT VOLUME 9.8 fl (7.5-11.1); PLATELET COUNT 54 K/MM3 (134-434); RDW 14.5 % (11.9-15.9); WHITE BLOOD COUNT 3.3 K/mm3 (4.0-10.0)
[2017-04-14 10:25] LABS: ALK PHOS 68 U/L (45-117); ANION GAP 7 (8-16); BILIRUBIN,TOTAL 0.9 mg/dL (0.2-1.0); CALCIUM 7.8 mg/dL (8.5-10.1); CO2 32 mmol/L (21-32); CREATININE 0.5 mg/dL (0.7-1.3); GLUCOSE,RANDOM 84 mg/dL (74-106); SGOT/AST 108 U/L (15-37); SGPT/ALT 97 U/L (12-78); TOT PROT 6.2 g/dl (6.4-8.2)
[2017-04-14] MEDS: HYDROCHLOROTHIAZIDE 25 MG TABLET (FP) PO SCH (10:31)
[2017-04-14] MEDS: ASPIRIN 81 MG CHEWABLE TABLETS PO SCH (10:31)
[2017-04-14] MEDS: TAMSULOSIN HCL 0.4 MG CAP.ER.24H (FP) PO SCH ×2 (10:31→22:05)
[2017-04-14] MEDS: PRENATAL VITAMINS W/ FOLIC ACID TABLET (FP) PO SCH (10:32)
[2017-04-14] MEDS: NICOTINE 14 MG/24 HOURS TOPICAL PATCH TD SCH (10:32)
[2017-04-14] MEDS ORDERED: POTASSIUM CHLORIDE TABS 20 MEQ TABLET.ER (FP) PO ONE (10:54)
[2017-04-14] MEDS: LOSARTAN POTASSIUM 25 MG TABLET PO SCH (11:10)
[2017-04-14 11:31] LABS: URINE LEUK ESTERASE Negative (NEGATIVE)
--- NOTE | 2017-04-14 12:35 | EKG ---
Test Reason : Blood Pressure : / mmHG Vent. Rate : 093 BPM Atrial Rate : 093 BPM P-R Int : 168 ms QRS Dur : 144 ms QT Int : 398 ms P-R-T Axes : 066 081 056 degrees QTc Int : 494 ms NORMAL SINUS RHYTHM BASELINE ARTIFACT INDETERMINATE AXIS RIGHT BUNDLE BRANCH BLOCK ABNORMAL ECG WHEN COMPARED WITH ECG OF 09-OCT-2016 22:12, NO SIGNIFICANT CHANGE WAS FOUND CLINICAL CORRELATION IS RECOMMENDED Confirmed by BREONNA MELENDREZ MD ([id number]) on 04/14/2017 12:35:16 PM Referred By: Confirmed By:BREONNA MELENDREZ MD
--- NOTE | 2017-04-14 12:35 | CONSULT ---
[facility] Psychiatric Consult - Data Date of interview: 04/14/17 Admission source: [facility] Identifying data: This is one of several admissions to [facility] for this 67 y/ o male seeking detox treatment on for alcohol dependence.Patient is ,a father of one,domiciled,unemployed and supported on SSI benefits. Substance Abuse History: Patient confirmed a history of heavy dependence on alcohol. Smoking history: Current every day smoker. Have you smoked in the past 12 months: Yes. Aproximately how many cigarettes per day: 20. Cigars Per Day: 0. Hx Chewing Tobacco Use: No. Initiated information on smoking cessation : Yes. 'Breaking Loose' booklet given: 04/13/17. - Substance & Tx. History. Hx Alcohol Use: Yes (Beer, Vodka). Hx Substance Use: No. Substance Use Type: Alcohol. Hx Substance Use Treatment: Yes ([facility]). - Substances Abused. Alcohol. Route: Oral. Frequency: Daily. Amount used: liquor- 2 pints, beer- 1 six pack. Age of first use: 14. Date of Last Use: 04/13/17 Medical History: Hypertension,GERD,COPD,pacemaker implantation (2013),herniated discs,low back pain,radiculopathy,spinal stenosis and current treatment for Ca of prostate. Psychiatric History: History of one psychiatric hospitalization ([facility] in 2011).Diagnosed with MDD and Panic Disorder.Mr Gomez gets his OPD care at the [facility] in [facility].Prescribed gabapentin 400 mg po tid (as per pharmacy claims of 04/03/17 at [facility] ; no evidence of effexor).No history of suicide attempts. Physical/Sexual Abuse/Trauma History: No reported history of abuse. Additional Comment: Urine Drug Screen Results: BZO-Benzodiazepines.Noted. Mental Status Exam - Mental Status Exam Alert and Oriented to: Time, Place, Person Cognitive Function: Good Patient Appearance: Unkempt, Disheveled Mood: Withdrawn, Hopeful Affect: Appropriate, Normal Range Patient Behavior: Fatigued, Appropriate, Cooperative Speech Pattern: Clear Voice Loudness: Normal Thought Process: Goal Oriented Thought Disorder: Not Present Hallucinations: Denies Suicidal Ideation: Denies Homicidal Ideation: Denies Insight/Judgement: Poor Sleep: Well Appetite: Good Gait/Station: Other (walks with a cane) Psychiatric Findings - Problem List ([place] 1, 2,3) (1) Alcohol dependence with uncomplicated withdrawal Current Visit: Yes Status: Acute (2) Nicotine dependence Current Visit: Yes Status: Acute Qualifiers: Nicotine product type: cigarettes Substance use status: in withdrawal Qualified Code(s): F17.213 - Nicotine dependence, cigarettes, with withdrawal (3) Substance induced mood disorder Current Visit: Yes Status: Acute (4) MDD (major depressive disorder) Current Visit: No Status: Chronic Qualifiers: Major depression recurrence: recurrent Active/Remission status: in remission of unspecified degree Qualified Code(s): F33.40 - Major depressive disorder, recurrent, in remission, unspecified Comment: As per self-report.No recent scripts for effexor.Non-adherence. - Initial Treatment Plan Initial Treatment Plan: Psychoeducation.Detoxification.Gabapentin 300 mg po tid.Side effects/benefits discussed with patient.Agrees with careplan.Observation.
--- NOTE | 2017-04-14 13:51 | PN ---
S CIWA - CIWA Score Nausea/Vomitin Muscle Tremors: 4-Moderate,w/Arms Extend Anxiety: 3 Agitation: 1-Slight > Activity Paroxysmal Sweats: 3 Orientation: 2-Disoriented Date<2 days Tacttile Disturbances: 2-Mild Itch/Numbness/Burn Auditory Disturbances: 2-Mild Harshness/Frighten Visual Disturbances: 0-None Headache: 0-None Present CIWA-Ar Total Score: 20 S Progress Note (SOAP) Subjective: Nausea, Sweating, Tremors. Objective: PT. A & O X 2 (UNCERTAIN ABOUT DAY / DATE). PT. AMBULATING ON UNIT WITH ASSISTANCE OF A CANE. NO ACUTE DISTRESS. 04/14/17 13:47 Vital Signs Temperature 96.9 F L 04/14/17 13:36 Pulse Rate 111 H 04/14/17 13:36 Respiratory Rate 18 04/14/17 13:36 Blood Pressure 102/68 04/14/17 13:36 O2 Sat by Pulse Oximetry (%) Laboratory Tests 04/13/17 04/14/17 04/14/17 23:00 07:00 07:00 WBC 3.3 L D RBC 3.76 L Hgb 12.6 D Hct 37.7 MCV 100.4 H MCH 33.6 MCHC 33.5 RDW 14.5 Plt Count 54 L D MPV 9.8 Sodium 140 Potassium 2.7 L* D Chloride 101 Carbon Dioxide 32 D Anion Gap 7 L BUN 8 Creatinine 0.5 L Creat Clearance w eGFR > 60 Random Glucose 84 Calcium 7.8 L Total Bilirubin 0.9 AST 108 H D ALT 97 H D Alkaline Phosphatase 68 Total Protein 6.2 L D Albumin 3.0 L D Urine Color Dkyellow Urine Appearance Clear Urine pH 6.0 Ur Specific [place] 1.011 Urine Protein Negative Urine Glucose (UA) Negative Urine Ketones Negative Urine Blood Negative Urine Nitrite Negative Urine Bilirubin Negative Urine Urobilinogen 4.0 e.u/dl Ur Leukocyte Esterase Negative RPR Titer 04/14/17 07:00 WBC RBC Hgb Hct MCV MCH MCHC RDW Plt Count MPV Sodium Potassium Chloride Carbon Dioxide Anion Gap BUN Creatinine Creat Clearance w eGFR Random Glucose Calcium Total Bilirubin AST ALT Alkaline Phosphatase Total Protein Albumin Urine Color Urine Appearance Urine pH Ur Specific [place] Urine Protein Urine Glucose (UA) Urine Ketones Urine Blood Urine Nitrite Urine Bilirubin Urine Urobilinogen Ur Leukocyte Esterase RPR Titer Nonreactive LABS NOTED. Assessment: 04/14/17 13:52 WITHDRAWAL SYMPTOMS. Plan: CONTINUE DETOX. K-DUR, 40 MEQ PO X 1 NOW, THEN 20 MEQ BID AFTER. REPEAT K LEVEL, AST, AND CBC ON 04/16/2017 FOR ABNORMAL ADMISSION VALUES. INCREASE DAILY PO FLUID INTAKE.
[2017-04-14] MEDS: POTASSIUM CHLORIDE TABS 20 MEQ TABLET.ER (FP) PO SCH (17:10)
[2017-04-14] MEDS: THIAMINE HCL 100 MG TABLET (FP) PO SCH (22:05)
[2017-04-15] MEDS: GABAPENTIN 300 MG CAPSULE (FP) PO SCH ×3 (05:59→22:09)
[2017-04-15] MEDS: chlordiazePOXIDE HCL 25 MG CAPSULE PO SCH ×3 (05:59→17:20)
[2017-04-15] MEDS: HYDROCHLOROTHIAZIDE 25 MG TABLET (FP) PO SCH (10:49)
[2017-04-15] MEDS: LOSARTAN POTASSIUM 25 MG TABLET PO SCH (10:49)
[2017-04-15] MEDS: ASPIRIN 81 MG CHEWABLE TABLETS PO SCH (10:55)
[2017-04-15] MEDS: POTASSIUM CHLORIDE TABS 20 MEQ TABLET.ER (FP) PO SCH ×2 (10:55→17:20)
[2017-04-15] MEDS: PRENATAL VITAMINS W/ FOLIC ACID TABLET (FP) PO SCH (10:55)
[2017-04-15] MEDS: NICOTINE 14 MG/24 HOURS TOPICAL PATCH TD SCH (11:02)
[2017-04-15] MEDS: TAMSULOSIN HCL 0.4 MG CAP.ER.24H (FP) PO SCH ×2 (11:03→22:09)
--- NOTE | 2017-04-15 12:57 | PN ---
[facility] CIWA - CIWA Score Nausea/Vomitin-No Nausea/No Vomiting Muscle Tremors: 4-Moderate,w/Arms Extend Anxiety: 3 Agitation: 3 Paroxysmal Sweats: 3 Orientation: 0-Oriented Tacttile Disturbances: 1-Very Mild Itch/Numbness Auditory Disturbances: 0-None Visual Disturbances: 2-Mild Sensitivity Headache: 0-None Present CIWA-Ar Total Score: 16 B[facility] Progress Note (SOAP) Subjective: Sweating, Anxious, Fatigue, Tremors. Objective: PT. A & O X 3, OBSERVED AMBULATING ON UNIT. NO ACUTE DISTRESS. 04/15/17 12:55 Vital Signs Temperature 96.1 F L 04/15/17 09:42 Pulse Rate 118 H 04/15/17 09:42 Respiratory Rate 18 04/15/17 09:42 Blood Pressure 81/50 04/15/17 09:42 O2 Sat by Pulse Oximetry (%) Laboratory Tests 04/13/17 04/14/17 04/14/17 23:00 07:00 07:00 WBC 3.3 L D RBC 3.76 L Hgb 12.6 D Hct 37.7 MCV 100.4 H MCH 33.6 MCHC 33.5 RDW 14.5 Plt Count 54 L D MPV 9.8 Sodium 140 Potassium 2.7 L* D Chloride 101 Carbon Dioxide 32 D Anion Gap 7 L BUN 8 Creatinine 0.5 L Creat Clearance w eGFR > 60 Random Glucose 84 Calcium 7.8 L Total Bilirubin 0.9 AST 108 H D ALT 97 H D Alkaline Phosphatase 68 Total Protein 6.2 L D Albumin 3.0 L D Urine Color Dkyellow Urine Appearance Clear Urine pH 6.0 Ur Specific [place] 1.011 Urine Protein Negative Urine Glucose (UA) Negative Urine Ketones Negative Urine Blood Negative Urine Nitrite Negative Urine Bilirubin Negative Urine Urobilinogen 4.0 e.u/dl Ur Leukocyte Esterase Negative RPR Titer 04/14/17 07:00 WBC RBC Hgb Hct MCV MCH MCHC RDW Plt Count MPV Sodium Potassium Chloride Carbon Dioxide Anion Gap BUN Creatinine Creat Clearance w eGFR Random Glucose Calcium Total Bilirubin AST ALT Alkaline Phosphatase Total Protein Albumin Urine Color Urine Appearance Urine pH Ur Specific [place] Urine Protein Urine Glucose (UA) Urine Ketones Urine Blood Urine Nitrite Urine Bilirubin Urine Urobilinogen Ur Leukocyte Esterase RPR Titer Nonreactive LABS NOTED. Assessment: 04/15/17 12:55 WITHDRAWAL SYMPTOMS. HYPOKALEMIA. 04/15/17 12:56 Plan: CONTINUE DETOX. INCREASE DAILY PO FLUID INTAKE. WATER PITCHER FOR BEDSIDE. CONTINUE DAILY POTASSIUM SUPPLEMENT.
[2017-04-15] MEDS: THIAMINE HCL 100 MG TABLET (FP) PO SCH (22:09)
[2017-04-15] MEDS: chlordiazePOXIDE 5 MG CAPSULE PO SCH (22:09)
[2017-04-15] MEDS: hydrOXYzine PAMOATE 50 MG CAPSULE (FP) PO PRN (22:10)
[2017-04-16] MEDS: chlordiazePOXIDE 5 MG CAPSULE PO SCH ×3 (06:01→17:06)
[2017-04-16] MEDS: GABAPENTIN 300 MG CAPSULE (FP) PO SCH ×3 (06:01→22:14)
[2017-04-16 10:08] LABS: RDW 14.3 % (11.9-15.9); WHITE BLOOD COUNT 3.7 K/mm3 (4.0-10.0)
[2017-04-16 10:11] LABS: BASOPHIL 0.5 % (0-2.0); MCH 34.3 pg (25.7-33.7); MCHC 33.9 g/dl (32.0-35.9); MEAN CELL VOLUME 101.2 fl (80-96); MEAN PLT VOLUME 10.2 fl (7.5-11.1); NEUTROPHILS 68.7 % (42.8-82.8); PLATELET COUNT 62 K/MM3 (134-434)
[2017-04-16] MEDS: LOSARTAN POTASSIUM 25 MG TABLET PO SCH (10:16)
[2017-04-16] MEDS: PRENATAL VITAMINS W/ FOLIC ACID TABLET (FP) PO SCH (10:17)
[2017-04-16] MEDS: ASPIRIN 81 MG CHEWABLE TABLETS PO SCH (10:17)
[2017-04-16] MEDS: HYDROCHLOROTHIAZIDE 25 MG TABLET (FP) PO SCH (10:17)
[2017-04-16] MEDS: TAMSULOSIN HCL 0.4 MG CAP.ER.24H (FP) PO SCH ×2 (10:17→22:14)
[2017-04-16] MEDS: POTASSIUM CHLORIDE TABS 20 MEQ TABLET.ER (FP) PO SCH ×2 (10:17→17:06)
[2017-04-16] MEDS: NICOTINE 14 MG/24 HOURS TOPICAL PATCH TD SCH (10:17)
[2017-04-16 11:15] LABS: SGOT/AST 77 U/L (15-37); SGPT/ALT 89 U/L (12-78)
--- NOTE | 2017-04-16 13:41 | PN ---
[facility] Progress Note (SOAP) Subjective: Tremors, Sweating. Objective: PT. A & O X 3, OBSERVED AMBULATING ON UNIT. NO ACUTE DISTRESS. 04/16/17 13:39 Vital Signs Temperature 97.9 F 04/16/17 08:59 Pulse Rate 111 H 04/16/17 08:59 Respiratory Rate 16 04/16/17 08:59 Blood Pressure 109/72 04/16/17 08:59 O2 Sat by Pulse Oximetry (%) Laboratory Tests 04/13/17 04/14/17 04/14/17 23:00 07:00 07:00 WBC 3.3 L D RBC 3.76 L Hgb 12.6 D Hct 37.7 MCV 100.4 H MCH 33.6 MCHC 33.5 RDW 14.5 Plt Count 54 L D MPV 9.8 Neutrophils % Lymphocytes % Monocytes % Eosinophils % Basophils % Sodium 140 Potassium 2.7 L* D Chloride 101 Carbon Dioxide 32 D Anion Gap 7 L BUN 8 Creatinine 0.5 L Creat Clearance w eGFR > 60 Random Glucose 84 Calcium 7.8 L Total Bilirubin 0.9 AST 108 H D ALT 97 H D Alkaline Phosphatase 68 Total Protein 6.2 L D Albumin 3.0 L D Urine Color Dkyellow Urine Appearance Clear Urine pH 6.0 Ur Specific [place] 1.011 Urine Protein Negative Urine Glucose (UA) Negative Urine Ketones Negative Urine Blood Negative Urine Nitrite Negative Urine Bilirubin Negative Urine Urobilinogen 4.0 e.u/dl Ur Leukocyte Esterase Negative RPR Titer 04/14/17 04/16/17 04/16/17 07:00 07:40 07:40 WBC 3.7 L RBC 3.53 L Hgb 12.1 Hct 35.7 MCV 101.2 H MCH 34.3 H MCHC 33.9 RDW 14.3 Plt Count 62 L MPV 10.2 Neutrophils % 68.7 Lymphocytes % 17.2 Monocytes % 11.6 H Eosinophils % 2.0 Basophils % 0.5 Sodium Potassium 3.5 D Chloride Carbon Dioxide Anion Gap BUN Creatinine Creat Clearance w eGFR Random Glucose Calcium Total Bilirubin AST ALT Alkaline Phosphatase Total Protein Albumin Urine Color Urine Appearance Urine pH Ur Specific [place] Urine Protein Urine Glucose (UA) Urine Ketones Urine Blood Urine Nitrite Urine Bilirubin Urine Urobilinogen Ur Leukocyte Esterase RPR Titer Nonreactive 04/16/17 07:40 WBC RBC Hgb Hct MCV MCH MCHC RDW Plt Count MPV Neutrophils % Lymphocytes % Monocytes % Eosinophils % Basophils % Sodium Potassium Chloride Carbon Dioxide Anion Gap BUN Creatinine Creat Clearance w eGFR Random Glucose Calcium Total Bilirubin AST 77 H D ALT 89 H Alkaline Phosphatase Total Protein Albumin Urine Color Urine Appearance Urine pH Ur Specific [place] Urine Protein Urine Glucose (UA) Urine Ketones Urine Blood Urine Nitrite Urine Bilirubin Urine Urobilinogen Ur Leukocyte Esterase RPR Titer LABS NOTED. RESULTS OF REPEAT CBC, K, AST, AND ALT LEVELS NOTED. 04/16/17 13:40 Assessment: 04/16/17 13:39 WITHDRAWAL SYMPTOMS. ANEMIA. 04/16/17 13:39 Plan: CONTINUE DETOX. INCREASE DAILY PO FLUID INTAKE.
[2017-04-16] MEDS: ALBUTEROL SO4 18 GM HFA INHALER IH PRN ×2 (13:42→23:37)
[2017-04-16] MEDS: DOCUSATE SODIUM 100 MG CAPSULE (FP) PO SCH ×2 (18:28→22:14)
[2017-04-16] MEDS: THIAMINE HCL 100 MG TABLET (FP) PO SCH (22:14)
[2017-04-16] MEDS: chlordiazePOXIDE HCL 10 MG CAPSULE PO SCH (22:14)
[2017-04-16] MEDS: hydrOXYzine PAMOATE 50 MG CAPSULE (FP) PO PRN (22:16)
[2017-04-17] MEDS: chlordiazePOXIDE HCL 10 MG CAPSULE PO SCH (05:55)
[2017-04-17] MEDS: DOCUSATE SODIUM 100 MG CAPSULE (FP) PO SCH (05:56)
[2017-04-17] MEDS: GABAPENTIN 300 MG CAPSULE (FP) PO SCH (05:56)
[2017-04-17 10:04] VITALS: BP 114/74; PULSE 112; TEMP 96.5
--- NOTE | 2017-04-17 17:36 | DS ---
[facility] Detox Discharge Summary Admission Date: 04/13/17 Discharge Date: 04/17/17 - History Present History: Alcohol Dependence Additional Comments: PATIENT REPORTS THAT HE WILL GO HOME FOR A FEW DAYS TO DEAL WITH SOME PERSONAL ISSUES AND THAT HE WILL THEN RETURN SOMETIME NEXT WEEK TO APPLY FOR REHAB ADMISSION TO [facility]. PATIENT ALSO ADVISED TO FOLLOW-UP WITH [employer] DR. FLORES ([place] FOR MEDICAL ASSESSMENT AND FOR HISTORY OF HTN AFTER DISCHARGE FROM DETOX. PATIENT WAS DISCHARGED FROM DETOX UNIT IN STABLE MEDICAL CONDITION. Pertinent Past History: BPH, Depression, History of Pacemaker, History of Prostate Cancer, HTN, Hard of Hearing, GERD, COPD, Nicotine Dependence. - Physical Exam Results Vital Signs: Vital Signs Temperature 96.5 F L 04/17/17 10:03 Pulse Rate 112 H 04/17/17 10:03 Respiratory Rate 18 04/17/17 10:03 Blood Pressure 114/74 04/17/17 10:03 O2 Sat by Pulse Oximetry (%) Pertinent Admission Physical Exam Findings: WITHDRAWAL SYMPTOMS. Laboratory Tests 04/13/17 04/14/17 04/14/17 23:00 07:00 07:00 WBC 3.3 L D RBC 3.76 L Hgb 12.6 D Hct 37.7 MCV 100.4 H MCH 33.6 MCHC 33.5 RDW 14.5 Plt Count 54 L D MPV 9.8 Neutrophils % Lymphocytes % Monocytes % Eosinophils % Basophils % Sodium 140 Potassium 2.7 L* D Chloride 101 Carbon Dioxide 32 D Anion Gap 7 L BUN 8 Creatinine 0.5 L Creat Clearance w eGFR > 60 Random Glucose 84 Calcium 7.8 L Total Bilirubin 0.9 AST 108 H D ALT 97 H D Alkaline Phosphatase 68 Total Protein 6.2 L D Albumin 3.0 L D Urine Color Dkyellow Urine Appearance Clear Urine pH 6.0 Ur Specific [place] 1.011 Urine Protein Negative Urine Glucose (UA) Negative Urine Ketones Negative Urine Blood Negative Urine Nitrite Negative Urine Bilirubin Negative Urine Urobilinogen 4.0 e.u/dl Ur Leukocyte Esterase Negative RPR Titer 04/14/17 04/16/17 04/16/17 07:00 07:40 07:40 WBC 3.7 L RBC 3.53 L Hgb 12.1 Hct 35.7 MCV 101.2 H MCH 34.3 H MCHC 33.9 RDW 14.3 Plt Count 62 L MPV 10.2 Neutrophils % 68.7 Lymphocytes % 17.2 Monocytes % 11.6 H Eosinophils % 2.0 Basophils % 0.5 Sodium Potassium 3.5 D Chloride Carbon Dioxide Anion Gap BUN Creatinine Creat Clearance w eGFR Random Glucose Calcium Total Bilirubin AST ALT Alkaline Phosphatase Total Protein Albumin Urine Color Urine Appearance Urine pH Ur Specific [place] Urine Protein Urine Glucose (UA) Urine Ketones Urine Blood Urine Nitrite Urine Bilirubin Urine Urobilinogen Ur Leukocyte Esterase RPR Titer Nonreactive 04/16/17 07:40 WBC RBC Hgb Hct MCV MCH MCHC RDW Plt Count MPV Neutrophils % Lymphocytes % Monocytes % Eosinophils % Basophils % Sodium Potassium Chloride Carbon Dioxide Anion Gap BUN Creatinine Creat Clearance w eGFR Random Glucose Calcium Total Bilirubin AST 77 H D ALT 89 H Alkaline Phosphatase Total Protein Albumin Urine Color Urine Appearance Urine pH Ur Specific [place] Urine Protein Urine Glucose (UA) Urine Ketones Urine Blood Urine Nitrite Urine Bilirubin Urine Urobilinogen Ur Leukocyte Esterase RPR Titer LABS NOTED. - Treatment Hospital Course: Detox Protocol Followed, Detoxed Safely, Responded well, Discharged Condition Good, Rehab Referral Accepted Patient has Accepted a Rehab Referral to: [facility]. - Medication Discharge Medications: Ambulatory Orders Aspirin [ASA -] 81 mg PO DAILY 08/30/15 Hydrochlorothiazide [Hctz -] 25 mg PO DAILY #30 tablet 09/03/15 Gabapentin [Neurontin -] 300 mg PO Q8H 06/20/16 Albuterol Sulfate Inhaler - [Ventolin HFA Inhaler -] 2 puff IH Q4H PRN #1 inhaler 10/21/16 Aspirin [ASA -] 81 mg PO DAILY #30 tab.chew 10/21/16 Gabapentin [Neurontin -] 300 mg PO TID #90 mg 10/21/16 Losartan Potassium [Cozaar -] 25 mg PO DAILY #30 mg 10/21/16 Tamsulosin HCl [Flomax -] 0.4 mg PO BID #30 mg 10/21/16 Gabapentin 300 mg PO TID #90 capsule 10/22/16 - Diagnosis (1) Alcohol dependence with uncomplicated withdrawal Status: Acute (2) Nicotine dependence Status: Acute Qualifiers: Nicotine product type: cigarettes Substance use status: in withdrawal Qualified Code(s): F17.213 - Nicotine dependence, cigarettes, with withdrawal (3) Substance induced mood disorder Status: Acute (4) BPH (benign prostatic hyperplasia) Status: Chronic Qualifiers: Lower urinary tract symptom presence: symptoms absent (5) COPD (chronic obstructive pulmonary disease) Status: Chronic Qualifiers: COPD type: unspecified COPD Qualified Code(s): J44.9 - Chronic obstructive pulmonary disease, unspecified (6) Essential hypertension Status: Chronic (7) GERD (gastroesophageal reflux disease) Status: Chronic Qualifiers: Esophagitis presence: without esophagitis Qualified Code(s): K21.9 - Gastro -esophageal reflux disease without esophagitis (8) Hard of hearing Status: Chronic Qualifiers: Hearing loss type: conductive Laterality: right Contralateral hearing status: unspecified Qualified Code(s): H90.11 - Conductive hearing loss, unilateral, right ear, with unrestricted hearing on the contralateral side (9) History of pacemaker Status: Chronic (10) History of prostate cancer Status: Chronic (11) MDD (major depressive disorder) Status: Chronic Qualifiers: Major depression recurrence: recurrent Active/Remission status: in remission of unspecified degree Qualified Code(s): F33.40 - Major depressive disorder, recurrent, in remission, unspecified - AMA Did Patient Leave Against Medical Advice: No
== END 2017-04-17 09:06 | disposition home or self-care (01) | DRG 775 ==
LOC: YASAS 18:54 → Y3N 21:24
PROVIDERS: ADMIT Internal Medicine; ATTEND Internal Medicine
PROC: HZ2ZZZZ Detoxification Services for Substance Abuse Treatment (ICD-10-PCS; principal; 2017-04-13)
DX: F10.230 Alcohol dependence with withdrawal, uncomplicated (principal); F17.213 Nicotine dependence, cigarettes, with withdrawal; F19.24 Other psychoactive substance dependence with psychoactive substance-induced mood disorder; F33.40 Major depressive disorder, recurrent, in remission, unspecified; E87.6 Hypokalemia; N40.0 Benign prostatic hyperplasia without lower urinary tract symptoms; J44.9 Chronic obstructive pulmonary disease, unspecified; K21.9 Gastro-esophageal reflux disease without esophagitis; R00.0 Tachycardia, unspecified; H90.11 Conductive hearing loss, unilateral, right ear, with unrestricted hearing on the contralateral side; Z95.0 Presence of cardiac pacemaker; Z85.46 Personal history of malignant neoplasm of prostate; Z92.3 Personal history of irradiation
CPT/HCPCS: 36415; 80053; 81003; 84132; 84450; 84460; 85025; 85027; 86593; 93005; 93010

== ENCOUNTER 2017-06-08 11:19 | Inpatient (IN) | payer MEDICARE, OTHER ==
[2017-06-08 11:36] VITALS: BMI 26.9
--- NOTE | 2017-06-08 17:35 | HP ---
CIWA Score - CIWA Score Nausea/Vomitin-No Nausea/No Vomiting Muscle Tremors: 4-Moderate,w/Arms Extend Anxiety: 4-Mod. Anxious/Guarded Agitation: 4-Moderately Restless Paroxysmal Sweats: 1-Minimal Palms Moist Orientation: 0-Oriented Tacttile Disturbances: 3-Moderate Itch/Numb/Burn Auditory Disturbances: 0-None Visual Disturbances: 0-None Headache: 0-None Present CIWA-Ar Total Score: 16 Admission ROS S - HPI Chief Complaint: WITHDRAWAL SX Allergies/Adverse Reactions: Allergies Allergy/AdvReac Type Severity Reaction Status Date / Time No Known Allergies Allergy Verified 06/08/17 18:08 History of Present Illness: 67 Y/O MALE WITH A HX OF ALCOHOL DEPENDENCE SEEKING DETOX [place]. Exam Limitations: Intoxication (BUT ALERT O X 3.) - Ebola screening Have you traveled outside of the country in the last 21 days: No Have you had contact with anyone from an Ebola affected area: No Have you been sick,other than usual withdrawal symptoms: No Do you have a fever: No - Review of Systems Constitutional: Night Sweats, Changes in sleep EENT: reports: Blurred Vision (WEARS GLASSES), Hearing Loss, Nose Congestion ( HX SINUSITIS) Respiratory: reports: Shortness of Breath (HX COPD), Wheezing Cardiac: reports: Lightheadedness GI: reports: Constipated, Nausea, Vomiting : reports: Frequency Musculoskeletal: reports: Back Pain, Joint Pain, Muscle Pain Integumentary: reports: Bruising (LEFT EYEBROW CUT FROM FALL A WEEK AGO. BRUISE ON RIGHT LOWER ABDOMEN FROM A FALL A MONTH AGO. LAST FALL WAS YESTERDAY BUT STATES NO INJURY. STATES ALL FALLS DUE TO BAD BACK/WEAK LEGS.) Neuro: reports: Dizziness Endocrine: reports: No Symptoms Reported Hematology: reports: No Symptoms Reported Psychiatric: reports: Orientated x3, Anxious, Depressed Other Systems: Reviewed and Negative Patient History - Patient Medical History Hx Anemia: No Hx Asthma: No Hx Chronic Obstructive Pulmonary Disease (COPD): Yes (MDI) Hx Cancer: Yes (PROSTATE CANCER) Hx Cardiac Disorders: Yes (Pt has a pacemaker since 2012) Hx Congestive Heart Failure: No Hx Hypertension: Yes (HCTZ. STOPPED COZAAR AND NORVASC DUE TO DIZZINESS.) Hx Hypercholesterolemia: No Hx Pacemaker: Yes (in 2012) HX Cerebrovascular Accident: No Hx Seizures: No Hx Dementia: No Hx Diabetes: No Hx Gastrointestinal Disorders: No Hx Liver Disease: No Hx Genitourinary Disorders: No Hx Sexually Transmitted Disorders: No Hx Renal Disease (ESRD): No Hx Thyroid Disease: No Hx Human Immunodeficiency Virus (HIV): No (NEGATIVE HX) Hx Hepatitis C: No Hx Depression: Yes (NO CURRENT MEDS) Hx Suicide Attempt: No (Denies suicidal ideation) Hx Bipolar Disorder: No Hx Schizophrenia: No - Patient Surgical History Past Surgical History: Yes Hx Neurologic Surgery: No Hx Cataract Extraction: No Hx Cardiac Surgery: Yes (pacemaker in 2012) Hx Lung Surgery: No Hx Breast Surgery: No Hx Breast Biopsy: No Hx Abdominal Surgery: No Hx Appendectomy: No Hx Cholecystectomy: No Hx Genitourinary Surgery: Yes (Cyberknife sx in 09/07 in [place]) Hx Orthopedic Surgery: Yes (rt. foot) Anesthesia Reaction: No - PPD History Previous Implant?: Yes Documented Results: Negative w/proof Date: 04/15/17 PPD to be Administered?: No - Reproductive History Patient is a Female of Child Bearing Age (11 -55 yrs old): No (MALE) - Smoking Cessation Smoking history: Current every day smoker Have you smoked in the past 12 months: Yes Aproximately how many cigarettes per day: 20 Cigars Per Day: 0 Hx Chewing Tobacco Use: No Initiated information on smoking cessation: Yes 'Breaking Loose' booklet given: 06/08/17 - Substance & Tx. History Hx Alcohol Use: Yes (VODKA) Hx Substance Use: No Substance Use Type: Alcohol Hx Substance Use Treatment: Yes (LAST TX AT [facility]OX) - Substances Abused Alcohol Route: Oral Frequency: Daily Amount used: 1 PT VODKA Age of first use: 16 Date of Last Use: 06/08/17 Family Disease History - Family Disease History Family Disease History: Heart Disease: Mother (Stroke- ), CA: Father ( Esophageal Ca- ), Brother (Lung Ca ), Sister (Breast Ca - ) Admission Physical Exam S - Vital Signs Vital Signs: Vital Signs - 24 hr 06/08/17 11:34 Temperature 96.9 F L Pulse Rate 90 Respiratory 18 Rate Blood Pressure 150/90 - Physical General Appearance: Yes: Moderate Distress, Alcohol on Breath, Intoxicated, Irritable, Anxious HEENTM: Yes: EOMI, Normocephalic, ALBA, Nasal Congestion Respiratory: Yes: Chest Non-Tender, Lungs Clear, Normal Breath Sounds, No Respiratory Distress Neck: Yes: No masses,lesions,Nodules, Supple, Trachea in good position Breast: Yes: Breast Exam Deferred Cardiology: Yes: Regular Rhythm, Regular Rate, S1, S2 Abdominal: Yes: Normal Bowel Sounds, Non Tender, Soft Genitourinary: Yes: Other (N/C) Back: Yes: Vertebral Tenderness Musculoskeletal: Yes: full range of Motion, Gait Steady Extremities: Yes: Normal Range of Motion, Non-Tender, Tremors Neurological: Yes: consumer loan officer II-XII NML intact, Fully Oriented, Alert Integumentary: Yes: Dry, Warm Lymphatic: Yes: Within Normal Limits - Diagnostic (1) Alcohol dependence with uncomplicated withdrawal Current Visit: Yes Status: Acute (2) Nicotine dependence Current Visit: Yes Status: Acute Qualifiers: Nicotine product type: cigarettes Substance use status: in withdrawal Qualified Code(s): F17.213 - Nicotine dependence, cigarettes, with withdrawal (3) BPH (benign prostatic hyperplasia) Current Visit: Yes Status: Chronic Qualifiers: Lower urinary tract symptom presence: symptoms absent (4) COPD (chronic obstructive pulmonary disease) Current Visit: Yes Status: Chronic Qualifiers: COPD type: unspecified COPD Qualified Code(s): J44.9 - Chronic obstructive pulmonary disease, unspecified (5) Essential hypertension Current Visit: Yes Status: Chronic (6) GERD (gastroesophageal reflux disease) Current Visit: Yes Status: Chronic Qualifiers: Esophagitis presence: without esophagitis Qualified Code(s): K21.9 - Gastro -esophageal reflux disease without esophagitis (7) Use of cane as ambulatory aid Current Visit: Yes Status: Chronic (8) Hard of hearing Current Visit: Yes Status: Chronic Qualifiers: Hearing loss type: conductive Laterality: right Contralateral hearing status: unspecified Qualified Code(s): H90.11 - Conductive hearing loss, unilateral, right ear, with unrestricted hearing on the contralateral side (9) History of pacemaker Current Visit: Yes Status: Chronic (10) History of prostate cancer Current Visit: Yes Status: Chronic Comment: PT STATES WENT THROUGH CYBERKNIFE SURGERY Cleared for Admission S - Detox or Rehab S Level of Care: Medically Managed Detox Regimen/Protocol: Librium S Breath Alcohol Content Breath Alcohol Content: 0.320 Urine Drug Screen - Results Drug Screen Negative: Yes
[2017-06-08] MEDS ORDERED: MAGNESIUM HYDROX 2400MG/30ML ORAL SUSPENSION 30 ML CUP PO PRN (17:57)
[2017-06-08] MEDS ORDERED: P-EPHED 60MG/TRIPROLIDI 2.5MG TABLET PO PRN (17:57)
[2017-06-08] MEDS ORDERED: LOPERAMIDE HCL 2 MG CAPSULE PO PRN (17:57)
[2017-06-08] MEDS ORDERED: IBUPROFEN 400 MG TABLET (FP) PO PRN (17:57)
[2017-06-08] MEDS ORDERED: NICOTINE POLACRILEX 4 MG GUM BC PRN (17:57)
[2017-06-08] MEDS ORDERED: chlordiazePOXIDE HCL 25 MG CAPSULE PO PRN (17:57)
[2017-06-08] MEDS ORDERED: MAGNESIUM CITRATE 300 ML BOTTLE PO PRN (17:57)
[2017-06-08] MEDS ORDERED: guaiFENesin/D-METHORPHAN HB 10 ML UNIT-DOSE CUPS PO PRN (17:57)
[2017-06-08] MEDS ORDERED: MAG HYDROX/AL HYDROX/SIMETH 30 ML UNIT-DOSE CUP PO PRN (17:57)
[2017-06-08] MEDS ORDERED: MENTHOL/PHENOL 1 EACH UD MM PRN (17:57)
[2017-06-08] MEDS ORDERED: ACETAMINOPHEN 325 MG TABLET (FP) PO PRN (17:57)
[2017-06-08] MEDS ORDERED: ALBUTEROL SO4 18 GM HFA INHALER IH PRN (18:35)
[2017-06-08] MEDS ORDERED: LOSARTAN POTASSIUM 25 MG TABLET PO SCH (18:45)
[2017-06-08] MEDS ORDERED: chlordiazePOXIDE HCL 25 MG CAPSULE PO ONE (19:00)
[2017-06-08] MEDS: ASPIRIN 81 MG CHEWABLE TABLETS PO SCH (20:34)
[2017-06-08] MEDS: LOSARTAN POTASSIUM 25 MG TABLET PO SCH (20:34)
[2017-06-08] MEDS: amLODIPine BESYLATE 10 MG TABLET (FP) PO SCH (20:34)
[2017-06-08 22:02] LABS: URINE APPEARANCE CLEAR; URINE BILIRUBIN NEGATIVE (NEGATIVE); URINE BLOOD NEGATIVE (NEGATIVE); URINE COLOR LTYELLOW; URINE GLUCOSE (UA) NEGATIVE (NEGATIVE); URINE KETONE NEGATIVE (NEGATIVE); URINE LEUK ESTERASE NEGATIVE (NEGATIVE); URINE NITRITE NEGATIVE (NEGATIVE); URINE PROTEIN NEGATIVE (NEGATIVE)
[2017-06-08] MEDS: THIAMINE HCL 100 MG TABLET (FP) PO SCH (22:41)
[2017-06-08] MEDS: GABAPENTIN 300 MG CAPSULE (FP) PO SCH (22:41)
[2017-06-08] MEDS: chlordiazePOXIDE HCL 25 MG CAPSULE PO SCH (22:41)
[2017-06-09] MEDS: chlordiazePOXIDE HCL 25 MG CAPSULE PO SCH ×5 (05:38→22:18)
[2017-06-09] MEDS: GABAPENTIN 300 MG CAPSULE (FP) PO SCH ×4 (05:39→22:18)
[2017-06-09] MEDS ORDERED: HYDROCHLOROTHIAZIDE 25 MG TABLET (FP) PO SCH (10:00)
[2017-06-09 10:03] LABS: HEMATOCRIT 38.7 % (35.4-49); HEMOGLOBIN 12.7 GM/dL (11.7-16.9); MCH 33.6 pg (25.7-33.7); PLATELET COUNT 70 K/MM3 (134-434); RBC 3.79 M/mm3 (4.00-5.60); RDW 14.3 % (11.9-15.9); WHITE BLOOD COUNT 2.8 K/mm3 (4.0-10.0)
[2017-06-09 10:08] LABS: CHLORIDE 102 mmol/L (98-107); SODIUM 141 mmol/L (136-145)
[2017-06-09 10:15] LABS: ALK PHOS 68 U/L (45-117); ANION GAP 11 (8-16); BILIRUBIN,TOTAL 0.7 mg/dL (0.2-1.0); BLOOD UREA NITROGEN 8 mg/dL (7-18); CALCIUM 7.4 mg/dL (8.5-10.1); CO2 28 mmol/L (21-32); CREATININE 0.3 mg/dL (0.7-1.3); GLUCOSE,RANDOM 87 mg/dL (74-106); SGPT/ALT 58 U/L (12-78); TOT PROT 6.4 g/dl (6.4-8.2)
[2017-06-09 10:18] LABS: SGOT/AST 89 U/L (15-37)
[2017-06-09] MEDS: LOSARTAN POTASSIUM 25 MG TABLET PO SCH (10:52)
[2017-06-09] MEDS: ASPIRIN 81 MG CHEWABLE TABLETS PO SCH (10:52)
[2017-06-09] MEDS: PRENATAL VITAMINS W/ FOLIC ACID TABLET (FP) PO SCH (10:52)
[2017-06-09] MEDS: amLODIPine BESYLATE 10 MG TABLET (FP) PO SCH (10:52)
[2017-06-09] MEDS: TAMSULOSIN HCL 0.4 MG CAP.ER.24H (FP) PO SCH (10:52)
[2017-06-09] MEDS: HYDROCHLOROTHIAZIDE 25 MG TABLET (FP) PO SCH (10:52)
--- NOTE | 2017-06-09 10:55 | EKG ---
Test Reason : Blood Pressure : / mmHG Vent. Rate : 085 BPM Atrial Rate : 085 BPM P-R Int : 176 ms QRS Dur : 150 ms QT Int : 422 ms P-R-T Axes : 056 049 023 degrees QTc Int : 502 ms NORMAL SINUS RHYTHM RIGHT BUNDLE BRANCH BLOCK ABNORMAL ECG WHEN COMPARED WITH ECG OF 14-APR-2017 00:11, NO SIGNIFICANT CHANGE WAS FOUND Confirmed by MD Simone, Ron ([id number]) on 06/09/2017 10:55:12 AM Referred By: Dilshad Carrion Confirmed By:Ron Nichols MD
[2017-06-09 11:08] LABS: POTASSIUM 2.9 mmol/L (3.5-5.1)
--- NOTE | 2017-06-09 11:25 | PN ---
[facility] CIWA - CIWA Score Nausea/Vomitin-No Nausea/No Vomiting Muscle Tremors: 3 Anxiety: 4-Mod. Anxious/Guarded Agitation: 0-Normal Activity Paroxysmal Sweats: No Perspiration Orientation: 2-Disoriented Date<2 days Tacttile Disturbances: 3-Moderate Itch/Numb/Burn Auditory Disturbances: 0-None Visual Disturbances: 3-Moderate Sensitivity Headache: 0-None Present CIWA-Ar Total Score: 15 S Progress Note (SOAP) Subjective: Tremors, Body Aches, Fatigue, Constipation. Objective: PT. A & O X 2 (UNCERTAIN ABOUT DAY / DATE). NO ACUTE DISTRESS. PT. DENIES CHEST PAIN. 06/09/17 11:21 Vital Signs Temperature 97.2 F L 06/09/17 10:24 Pulse Rate 107 H 06/09/17 10:24 Respiratory Rate 20 06/09/17 10:24 Blood Pressure 137/76 06/09/17 10:24 O2 Sat by Pulse Oximetry (%) Laboratory Tests 06/08/17 06/09/17 06/09/17 21:50 07:00 07:00 WBC 2.8 L RBC 3.79 L Hgb 12.7 Hct 38.7 MCV 102.0 H MCH 33.6 MCHC 33.0 RDW 14.3 Plt Count 70 L MPV 10.0 Sodium 141 Potassium 2.9 L* Chloride 102 Carbon Dioxide 28 Anion Gap 11 BUN 8 Creatinine 0.3 L D Creat Clearance w eGFR > 60 Random Glucose 87 Calcium 7.4 L Total Bilirubin 0.7 D AST 89 H ALT 58 D Alkaline Phosphatase 68 Total Protein 6.4 Albumin 3.0 L Urine Color Ltyellow Urine Appearance Clear Urine pH 7.0 Ur Specific [place] 1.005 Urine Protein Negative Urine Glucose (UA) Negative Urine Ketones Negative Urine Blood Negative Urine Nitrite Negative Urine Bilirubin Negative Urine Urobilinogen 2.0 Ur Leukocyte Esterase Negative LABS NOTED. RPR RESULT PENDING. 06/09/17 11:24 Assessment: 06/09/17 11:21 WITHDRAWAL SYMPTOMS. LEUKOPENIA. HYPOKALEMIA. 06/09/17 11:25 Plan: CONTINUE DETOX. K-DUR, 40 MEQ PO X 1 NOW, THEN 20 MEQ PO BID AFTER. REPEAT K LEVEL ON 06/11/2017. PRN MOM FOR CONSTIPATION.
[2017-06-09] MEDS ORDERED: POTASSIUM CHLORIDE TABS 20 MEQ TABLET.ER (FP) PO ONE (11:26)
--- NOTE | 2017-06-09 12:08 | CONSULT ---
[facility] Psychiatric Consult - Data Date of interview: 06/09/17 Admission source: Self-referred Identifying data: Mr Gomez is a 67 years old male, father of an 18 years old daughter, unemployed on SSI, domiciled seeking detox treatment for alcohol Substance Abuse History: Reports history of alcoho use, He started drinking alcohol at age 16, consumes one pont daily. Last drank on 06/08/17 Medical History: Significant for COPD, GERD, HTN, CAD with pacemaker implant in 2012, BPH, treatment of prostate cancer with cyberknife in August 2016 at [facility], and surgery for fracture of calcaneous right foot. Smokes 20 cigarettes daily Psychiatric History: Patient seen by copywriter at a previous admission in this facility. Reported history remains consistent. Reports being diagnosed with MDD & Panic Disorder at age 20. Reports one previous psychiatric admission on 2011 to [facility] for depression and suicidal ideations. Reports several trials on different psychotropic medications including Wellbutrin, Xanax , Valium etc over the years. However for the past 7 years, He has been stable on Effexor 75 mg po daily which is now being pescribed by a psychiatrist at [facility] in [place]. Denies history of suicidal attempt. At present, reports feeling mildly depressed and sleeping poorly Physical/Sexual Abuse/Trauma History: Denies history of emotional, physical and sexual abuse as well as DV relationship Additional Comment: Reports history of one previous felony arrest for possession /sale of marijuana. Denies being on parole/probation at present. Vital Signs: Mental Status Exam - Mental Status Exam Alert and Oriented to: Time, Person Cognitive Function: Fair Patient Appearance: Disheveled Mood: Depressed (mildly) Affect: Appropriate Patient Behavior: Cooperative Speech Pattern: Clear Voice Loudness: Normal Thought Disorder: Not Present Hallucinations: Denies Suicidal Ideation: Denies Homicidal Ideation: Denies Insight/Judgement: Poor Sleep: Poorly Appetite: Good Muscle strength/Tone: Normal Gait/Station: Normal Psychiatric Findings - Problem List ([place] 1, 2,3) (1) MDD (major depressive disorder) Current Visit: No Status: Chronic Qualifiers: Major depression recurrence: recurrent Active/Remission status: in remission of unspecified degree Qualified Code(s): F33.40 - Major depressive disorder, recurrent, in remission, unspecified Comment: As per self-report.No recent scripts for effexor.Non-adherence. (2) Substance induced mood disorder Current Visit: No Status: Acute (3) Substance-induced sleep disorder Current Visit: Yes Status: Acute (4) Alcohol dependence with uncomplicated withdrawal Current Visit: Yes Status: Acute (5) Nicotine dependence Current Visit: Yes Status: Chronic Qualifiers: Nicotine product type: cigarettes Substance use status: in withdrawal Qualified Code(s): F17.213 - Nicotine dependence, cigarettes, with withdrawal (6) BPH (benign prostatic hyperplasia) Current Visit: Yes Status: Chronic Qualifiers: Lower urinary tract symptom presence: symptoms absent (7) COPD (chronic obstructive pulmonary disease) Current Visit: Yes Status: Chronic Qualifiers: COPD type: unspecified COPD Qualified Code(s): J44.9 - Chronic obstructive pulmonary disease, unspecified (8) Essential hypertension Current Visit: Yes Status: Chronic (9) GERD (gastroesophageal reflux disease) Current Visit: Yes Status: Chronic Qualifiers: Esophagitis presence: without esophagitis Qualified Code(s): K21.9 - Gastro -esophageal reflux disease without esophagitis (10) Pacemaker Current Visit: Yes Status: Chronic (11) History of prostate cancer Current Visit: No Status: Chronic Comment: PT STATES CURRENTLY GOING THROUGH PROCESS FOR SX THEN RADIATION [place] AFTER DETOX - Initial Treatment Plan Initial Treatment Plan: 1) Continue Effexor 75 mg po daily. 2) Start Ambien 10 mg po HS. Benefits vs Risks of medication discussed with patient and he agreed to try it. 3) Continue inpatient detoxification
[2017-06-09] MEDS ORDERED: ZOLPIDEM TARTRATE 10 MG TABLET (PARK CARE ONLY) PO PRN (12:20)
[2017-06-09] MEDS: VENLAFAXINE HCL 75 MG TABLET PO SCH (14:50)
[2017-06-09] MEDS: POTASSIUM CHLORIDE TABS 20 MEQ TABLET.ER (FP) PO SCH (19:13)
[2017-06-09] MEDS: THIAMINE HCL 100 MG TABLET (FP) PO SCH (22:18)
[2017-06-10] MEDS: GABAPENTIN 300 MG CAPSULE (FP) PO SCH ×3 (05:46→22:09)
[2017-06-10] MEDS: chlordiazePOXIDE HCL 25 MG CAPSULE PO SCH ×3 (05:46→17:33)
[2017-06-10] MEDS: VENLAFAXINE HCL 75 MG TABLET PO SCH (10:36)
[2017-06-10] MEDS: TAMSULOSIN HCL 0.4 MG CAP.ER.24H (FP) PO SCH (10:37)
[2017-06-10] MEDS: POTASSIUM CHLORIDE TABS 20 MEQ TABLET.ER (FP) PO SCH ×2 (10:37→17:34)
[2017-06-10] MEDS: PRENATAL VITAMINS W/ FOLIC ACID TABLET (FP) PO SCH (10:37)
[2017-06-10] MEDS: amLODIPine BESYLATE 10 MG TABLET (FP) PO SCH (10:37)
[2017-06-10] MEDS: HYDROCHLOROTHIAZIDE 25 MG TABLET (FP) PO SCH (10:37)
[2017-06-10] MEDS: ASPIRIN 81 MG CHEWABLE TABLETS PO SCH (10:37)
[2017-06-10] MEDS: LOSARTAN POTASSIUM 25 MG TABLET PO SCH (10:37)
--- NOTE | 2017-06-10 13:45 | PN ---
[facility] CIWA - CIWA Score Nausea/Vomitin-No Nausea/No Vomiting Muscle Tremors: 4-Moderate,w/Arms Extend Anxiety: 4-Mod. Anxious/Guarded Agitation: 1-Slight > Activity Paroxysmal Sweats: 2 Orientation: 2-Disoriented Date<2 days Tacttile Disturbances: 0-None Auditory Disturbances: 2-Mild Harshness/Frighten Visual Disturbances: 2-Mild Sensitivity Headache: 0-None Present CIWA-Ar Total Score: 17 S Progress Note (SOAP) Subjective: Tremors, Body Aches, Sweating. Objective: PT. A & O X 2 (UNCERTAIN ABOUT CURRENT DAY / DATE). PT. OBSERVED AMBULATING ON UNIT WITH ASSISTANCE OF A CANE. NO ACUTE DISTRESS. 06/10/17 13:41 Vital Signs Temperature 96.2 F L 06/10/17 13:10 Pulse Rate 85 06/10/17 13:10 Respiratory Rate 20 06/10/17 13:10 Blood Pressure 100/65 06/10/17 13:10 O2 Sat by Pulse Oximetry (%) Laboratory Tests 06/08/17 06/09/17 06/09/17 21:50 07:00 07:00 WBC 2.8 L RBC 3.79 L Hgb 12.7 Hct 38.7 MCV 102.0 H MCH 33.6 MCHC 33.0 RDW 14.3 Plt Count 70 L MPV 10.0 Sodium 141 Potassium 2.9 L* Chloride 102 Carbon Dioxide 28 Anion Gap 11 BUN 8 Creatinine 0.3 L D Creat Clearance w eGFR > 60 Random Glucose 87 Calcium 7.4 L Total Bilirubin 0.7 D AST 89 H ALT 58 D Alkaline Phosphatase 68 Total Protein 6.4 Albumin 3.0 L Urine Color Ltyellow Urine Appearance Clear Urine pH 7.0 Ur Specific [place] 1.005 Urine Protein Negative Urine Glucose (UA) Negative Urine Ketones Negative Urine Blood Negative Urine Nitrite Negative Urine Bilirubin Negative Urine Urobilinogen 2.0 Ur Leukocyte Esterase Negative RPR Titer 06/09/17 07:00 WBC RBC Hgb Hct MCV MCH MCHC RDW Plt Count MPV Sodium Potassium Chloride Carbon Dioxide Anion Gap BUN Creatinine Creat Clearance w eGFR Random Glucose Calcium Total Bilirubin AST ALT Alkaline Phosphatase Total Protein Albumin Urine Color Urine Appearance Urine pH Ur Specific [place] Urine Protein Urine Glucose (UA) Urine Ketones Urine Blood Urine Nitrite Urine Bilirubin Urine Urobilinogen Ur Leukocyte Esterase RPR Titer Nonreactive LABS NOTED. Assessment: 06/10/17 13:42 WITHDRAWAL SYMPTOMS. Plan: CONTINUE DETOX. CONTINUE K-DUR BID. INCREASE DAILY PO FLUID INTAKE. REPEAT CBC TOMORROW AM FOR LOW ADMISSION WBC AND PLATELET LEVELS.
[2017-06-10] MEDS: THIAMINE HCL 100 MG TABLET (FP) PO SCH (22:09)
[2017-06-10] MEDS: chlordiazePOXIDE 5 MG CAPSULE PO SCH (23:09)
[2017-06-11] MEDS: GABAPENTIN 300 MG CAPSULE (FP) PO SCH ×3 (05:57→22:22)
[2017-06-11] MEDS: chlordiazePOXIDE 5 MG CAPSULE PO SCH ×3 (05:57→17:57)
[2017-06-11] MEDS: LOSARTAN POTASSIUM 25 MG TABLET PO SCH (09:16)
[2017-06-11] MEDS: amLODIPine BESYLATE 10 MG TABLET (FP) PO SCH (09:16)
[2017-06-11] MEDS: HYDROCHLOROTHIAZIDE 25 MG TABLET (FP) PO SCH (09:16)
[2017-06-11] MEDS: TAMSULOSIN HCL 0.4 MG CAP.ER.24H (FP) PO SCH (09:18)
[2017-06-11 10:47] LABS: BASO % 0.6 % (0-2.0); EOS % 2.9 % (0-4.5); HEMATOCRIT 39.8 % (35.4-49); HEMOGLOBIN 13.2 GM/dL (11.7-16.9); LYMPH % 24.2 % (8-40); MCH 33.9 pg (25.7-33.7); MCHC 33.1 g/dl (32.0-35.9); MEAN CELL VOLUME 102.6 fl (80-96); MEAN PLT VOLUME 10.3 fl (7.5-11.1); MONO % 12.5 % (3.8-10.2); NEUT % 59.8 % (42.8-82.8); PLATELET COUNT 65 K/MM3 (134-434); RBC 3.88 M/mm3 (4.00-5.60); RDW 14.4 % (11.9-15.9); WHITE BLOOD COUNT 2.9 K/mm3 (4.0-10.0)
[2017-06-11] MEDS: ASPIRIN 81 MG CHEWABLE TABLETS PO SCH (10:56)
[2017-06-11] MEDS: PRENATAL VITAMINS W/ FOLIC ACID TABLET (FP) PO SCH (10:56)
[2017-06-11] MEDS: POTASSIUM CHLORIDE TABS 20 MEQ TABLET.ER (FP) PO SCH ×3 (10:56→19:24)
[2017-06-11] MEDS: VENLAFAXINE HCL 75 MG TABLET PO SCH (10:57)
--- NOTE | 2017-06-11 15:07 | PN ---
[facility] Progress Note (SOAP) Subjective: Tremors, Body Aches, Sweating. Objective: PT. A & O X 3, OBSERVED AMBULATING ON UNIT WITH ASSISTANCE OF A CANE. NO ACUTE DISTRESS. 06/11/17 15:05 Vital Signs Temperature 96.9 F L 06/11/17 13:34 Pulse Rate 105 H 06/11/17 13:34 Respiratory Rate 20 06/11/17 13:34 Blood Pressure 110/75 06/11/17 13:34 O2 Sat by Pulse Oximetry (%) Laboratory Tests 06/08/17 06/09/17 06/09/17 21:50 07:00 07:00 WBC 2.8 L RBC 3.79 L Hgb 12.7 Hct 38.7 MCV 102.0 H MCH 33.6 MCHC 33.0 RDW 14.3 Plt Count 70 L MPV 10.0 Neutrophils % Lymphocytes % Monocytes % Eosinophils % Basophils % Sodium 141 Potassium 2.9 L* Chloride 102 Carbon Dioxide 28 Anion Gap 11 BUN 8 Creatinine 0.3 L D Creat Clearance w eGFR > 60 Random Glucose 87 Calcium 7.4 L Total Bilirubin 0.7 D AST 89 H ALT 58 D Alkaline Phosphatase 68 Total Protein 6.4 Albumin 3.0 L Urine Color Ltyellow Urine Appearance Clear Urine pH 7.0 Ur Specific [place] 1.005 Urine Protein Negative Urine Glucose (UA) Negative Urine Ketones Negative Urine Blood Negative Urine Nitrite Negative Urine Bilirubin Negative Urine Urobilinogen 2.0 Ur Leukocyte Esterase Negative RPR Titer 06/09/17 06/11/17 06/11/17 07:00 07:00 07:00 WBC 2.9 L RBC 3.88 L Hgb 13.2 Hct 39.8 MCV 102.6 H MCH 33.9 H MCHC 33.1 RDW 14.4 Plt Count 65 L MPV 10.3 Neutrophils % 59.8 Lymphocytes % 24.2 D Monocytes % 12.5 H Eosinophils % 2.9 Basophils % 0.6 Sodium Potassium 3.8 D Chloride Carbon Dioxide Anion Gap BUN Creatinine Creat Clearance w eGFR Random Glucose Calcium Total Bilirubin AST ALT Alkaline Phosphatase Total Protein Albumin Urine Color Urine Appearance Urine pH Ur Specific [place] Urine Protein Urine Glucose (UA) Urine Ketones Urine Blood Urine Nitrite Urine Bilirubin Urine Urobilinogen Ur Leukocyte Esterase RPR Titer Nonreactive LABS NOTED. RESULTS OF REPEAT CBC AND K LEVELS NOTED. 06/11/17 15:06 Assessment: 06/11/17 15:05 WITHDRAWAL SYMPTOMS. Plan: CONTINUE DETOX.
[2017-06-11] MEDS: THIAMINE HCL 100 MG TABLET (FP) PO SCH (22:22)
[2017-06-11] MEDS: chlordiazePOXIDE HCL 10 MG CAPSULE PO SCH (22:22)
[2017-06-12] MEDS: chlordiazePOXIDE HCL 10 MG CAPSULE PO SCH ×3 (06:28→17:19)
[2017-06-12] MEDS: GABAPENTIN 300 MG CAPSULE (FP) PO SCH ×3 (06:28→22:30)
[2017-06-12] MEDS: PRENATAL VITAMINS W/ FOLIC ACID TABLET (FP) PO SCH (10:37)
[2017-06-12] MEDS: ASPIRIN 81 MG CHEWABLE TABLETS PO SCH (10:37)
[2017-06-12] MEDS: VENLAFAXINE HCL 75 MG TABLET PO SCH (10:37)
[2017-06-12] MEDS: TAMSULOSIN HCL 0.4 MG CAP.ER.24H (FP) PO SCH (11:42)
[2017-06-12] MEDS: LOSARTAN POTASSIUM 25 MG TABLET PO SCH (11:42)
[2017-06-12] MEDS: amLODIPine BESYLATE 10 MG TABLET (FP) PO SCH (11:42)
[2017-06-12] MEDS: HYDROCHLOROTHIAZIDE 25 MG TABLET (FP) PO SCH (11:42)
[2017-06-12] MEDS: POTASSIUM CHLORIDE TABS 20 MEQ TABLET.ER (FP) PO SCH ×2 (11:58→17:58)
--- NOTE | 2017-06-12 15:31 | PN ---
[facility] Progress Note (SOAP) Subjective: Tremors, Body Aches, Anxious. Objective: PT. A & O X 3, OBSERVED AMBULATING ON UNIT WITH ASSISTANCE OF A CANE. NO ACUTE DISTRESS. 06/12/17 15:27 Vital Signs Temperature 96.0 F L 06/12/17 14:20 Pulse Rate 93 H 06/12/17 14:20 Respiratory Rate 06/12/17 14:20 Blood Pressure 112/74 06/12/17 14:20 O2 Sat by Pulse Oximetry (%) Laboratory Tests 06/08/17 06/09/17 06/09/17 21:50 07:00 07:00 WBC 2.8 L RBC 3.79 L Hgb 12.7 Hct 38.7 MCV 102.0 H MCH 33.6 MCHC 33.0 RDW 14.3 Plt Count 70 L MPV 10.0 Neutrophils % Lymphocytes % Monocytes % Eosinophils % Basophils % Sodium 141 Potassium 2.9 L* Chloride 102 Carbon Dioxide 28 Anion Gap 11 BUN 8 Creatinine 0.3 L D Creat Clearance w eGFR > 60 Random Glucose 87 Calcium 7.4 L Total Bilirubin 0.7 D AST 89 H ALT 58 D Alkaline Phosphatase 68 Total Protein 6.4 Albumin 3.0 L Urine Color Ltyellow Urine Appearance Clear Urine pH 7.0 Ur Specific [place] 1.005 Urine Protein Negative Urine Glucose (UA) Negative Urine Ketones Negative Urine Blood Negative Urine Nitrite Negative Urine Bilirubin Negative Urine Urobilinogen 2.0 Ur Leukocyte Esterase Negative RPR Titer 06/09/17 06/11/17 06/11/17 07:00 07:00 07:00 WBC 2.9 L RBC 3.88 L Hgb 13.2 Hct 39.8 MCV 102.6 H MCH 33.9 H MCHC 33.1 RDW 14.4 Plt Count 65 L MPV 10.3 Neutrophils % 59.8 Lymphocytes % 24.2 D Monocytes % 12.5 H Eosinophils % 2.9 Basophils % 0.6 Sodium Potassium 3.8 D Chloride Carbon Dioxide Anion Gap BUN Creatinine Creat Clearance w eGFR Random Glucose Calcium Total Bilirubin AST ALT Alkaline Phosphatase Total Protein Albumin Urine Color Urine Appearance Urine pH Ur Specific [place] Urine Protein Urine Glucose (UA) Urine Ketones Urine Blood Urine Nitrite Urine Bilirubin Urine Urobilinogen Ur Leukocyte Esterase RPR Titer Nonreactive LABS NOTED. Assessment: 06/12/17 15:28 WITHDRAWAL SYMPTOMS. Plan: CONTINUE DETOX. DUE TO PERSISTENCE OF DETOX SYMPTOMS, PATIENT TO REMAIN ON DETOX UNIT UNTIL TOMORROW, 06/13/2017, AT WHICH TIME HE WILL DISCHARGED TO PURSUE REHAB ADMISSION.
[2017-06-12 22:31] VITALS: TEMP 96.1
[2017-06-12] MEDS: THIAMINE HCL 100 MG TABLET (FP) PO SCH (22:31)
[2017-06-13] MEDS: GABAPENTIN 300 MG CAPSULE (FP) PO SCH (06:52)
[2017-06-13 09:35] VITALS: BP 121/79; PULSE 101
--- NOTE | 2017-06-13 17:28 | DS ---
[facility] Detox Discharge Summary Admission Date: 06/08/17 Discharge Date: 06/13/17 - History Present History: Alcohol Dependence Additional Comments: NO BEDS ARE CURRENTLY AVAILABLE AT [facility] ([email or web address] AT THIS TIME, PATIENT WILL GO HOME FOR THE TIME BEING AND WILL APPLY FOR ADMISSION TO [facility] IN AM ON 06/15/2017. PATIENT WAS DISCHARGED FROM DETOX UNIT IN STABLE MEDICAL CONDITION. Pertinent Past History: History of Cardiac Pacemaker Placement, HTN, Use of Caner as Ambulatory Aid, Hard of Hearing, GERD, History of Prostate Cancer, BPH, COPD, Nicotine Dependence, Hypokalemia, Depression, History of Prostate Cancer. - Physical Exam Results Vital Signs: Vital Signs Temperature 96.1 F L 06/13/17 09:34 Pulse Rate 101 H 06/13/17 09:34 Respiratory Rate 06/13/17 09:34 Blood Pressure 121/79 06/13/17 09:34 O2 Sat by Pulse Oximetry (%) Pertinent Admission Physical Exam Findings: WITHDRAWAL SYMPTOMS. Laboratory Tests 06/08/17 06/09/17 06/09/17 21:50 07:00 07:00 WBC 2.8 L RBC 3.79 L Hgb 12.7 Hct 38.7 MCV 102.0 H MCH 33.6 MCHC 33.0 RDW 14.3 Plt Count 70 L MPV 10.0 Neutrophils % Lymphocytes % Monocytes % Eosinophils % Basophils % Sodium 141 Potassium 2.9 L* Chloride 102 Carbon Dioxide 28 Anion Gap 11 BUN 8 Creatinine 0.3 L D Creat Clearance w eGFR > 60 Random Glucose 87 Calcium 7.4 L Total Bilirubin 0.7 D AST 89 H ALT 58 D Alkaline Phosphatase 68 Total Protein 6.4 Albumin 3.0 L Urine Color Ltyellow Urine Appearance Clear Urine pH 7.0 Ur Specific [place] 1.005 Urine Protein Negative Urine Glucose (UA) Negative Urine Ketones Negative Urine Blood Negative Urine Nitrite Negative Urine Bilirubin Negative Urine Urobilinogen 2.0 Ur Leukocyte Esterase Negative RPR Titer 06/09/17 06/11/17 06/11/17 07:00 07:00 07:00 WBC 2.9 L RBC 3.88 L Hgb 13.2 Hct 39.8 MCV 102.6 H MCH 33.9 H MCHC 33.1 RDW 14.4 Plt Count 65 L MPV 10.3 Neutrophils % 59.8 Lymphocytes % 24.2 D Monocytes % 12.5 H Eosinophils % 2.9 Basophils % 0.6 Sodium Potassium 3.8 D Chloride Carbon Dioxide Anion Gap BUN Creatinine Creat Clearance w eGFR Random Glucose Calcium Total Bilirubin AST ALT Alkaline Phosphatase Total Protein Albumin Urine Color Urine Appearance Urine pH Ur Specific [place] Urine Protein Urine Glucose (UA) Urine Ketones Urine Blood Urine Nitrite Urine Bilirubin Urine Urobilinogen Ur Leukocyte Esterase RPR Titer Nonreactive LABS NOTED. - Treatment Hospital Course: Detox Protocol Followed, Detoxed Safely, Responded well, Discharged Condition Good, Rehab Referral Accepted Patient has Accepted a Rehab Referral to: [facility] ([facility] . - Medication Discharge Medications: Ambulatory Orders Aspirin [ASA -] 81 mg PO DAILY 08/30/15 Hydrochlorothiazide [Hctz -] 25 mg PO DAILY #30 tablet 09/03/15 Albuterol Sulfate Inhaler - [Ventolin HFA Inhaler -] 2 puff IH Q4H PRN #1 inhaler 10/21/16 Gabapentin [Neurontin -] 300 mg PO TID #90 mg 10/21/16 Losartan Potassium [Cozaar -] 25 mg PO DAILY #30 mg 10/21/16 Gabapentin 300 mg PO TID #90 capsule 10/22/16 Amlodipine Besylate 10 mg PO DAILY 06/08/17 Tamsulosin HCl [Flomax -] 0.4 mg PO DAILY 06/08/17 - Diagnosis (1) Alcohol dependence with uncomplicated withdrawal Status: Acute (2) Nicotine dependence Status: Acute Qualifiers: Nicotine product type: cigarettes Substance use status: in withdrawal Qualified Code(s): F17.213 - Nicotine dependence, cigarettes, with withdrawal (3) BPH (benign prostatic hyperplasia) Status: Chronic Qualifiers: Lower urinary tract symptom presence: symptoms absent (4) COPD (chronic obstructive pulmonary disease) Status: Chronic Qualifiers: COPD type: unspecified COPD Qualified Code(s): J44.9 - Chronic obstructive pulmonary disease, unspecified (5) Pacemaker Status: Deleted (6) Hypokalemia Status: Acute (7) Essential hypertension Status: Chronic (8) GERD (gastroesophageal reflux disease) Status: Chronic Qualifiers: Esophagitis presence: without esophagitis Qualified Code(s): K21.9 - Gastro -esophageal reflux disease without esophagitis (9) Use of cane as ambulatory aid Status: Chronic (10) Substance induced mood disorder Status: Acute (11) Substance-induced sleep disorder Status: Acute (12) Hard of hearing Status: Chronic Qualifiers: Hearing loss type: conductive Laterality: right Contralateral hearing status: unspecified Qualified Code(s): H90.11 - Conductive hearing loss, unilateral, right ear, with unrestricted hearing on the contralateral side (13) History of prostate cancer Status: Chronic (14) MDD (major depressive disorder) Status: Chronic Qualifiers: Major depression recurrence: recurrent Active/Remission status: in remission of unspecified degree Qualified Code(s): F33.40 - Major depressive disorder, recurrent, in remission, unspecified - AMA Did Patient Leave Against Medical Advice: No
== END 2017-06-13 09:42 | disposition home or self-care (01) | DRG 897 ==
LOC: YASAS 11:19 → Y3N 18:26
PROVIDERS: ADMIT Internal Medicine; ATTEND Internal Medicine
PROC: HZ2ZZZZ Detoxification Services for Substance Abuse Treatment (ICD-10-PCS; principal; 2017-06-08)
DX: F10.230 Alcohol dependence with withdrawal, uncomplicated (principal); F19.282 Other psychoactive substance dependence with psychoactive substance-induced sleep disorder; F33.40 Major depressive disorder, recurrent, in remission, unspecified; F17.213 Nicotine dependence, cigarettes, with withdrawal; F19.24 Other psychoactive substance dependence with psychoactive substance-induced mood disorder; I10 Essential (primary) hypertension; I25.10 Atherosclerotic heart disease of native coronary artery without angina pectoris; E87.6 Hypokalemia; K21.9 Gastro-esophageal reflux disease without esophagitis; J44.9 Chronic obstructive pulmonary disease, unspecified; N40.0 Benign prostatic hyperplasia without lower urinary tract symptoms; H90.11 Conductive hearing loss, unilateral, right ear, with unrestricted hearing on the contralateral side; R26.2 Difficulty in walking, not elsewhere classified; Z99.89 Dependence on other enabling machines and devices; Z85.46 Personal history of malignant neoplasm of prostate; Z95.0 Presence of cardiac pacemaker; Z92.3 Personal history of irradiation
CPT/HCPCS: 36415; 80053; 81003; 84132; 85025; 85027; 86593; 93005; 93010